=== PATIENT | female | born 1955 | race American Indian/Alaskan Native ===

== ENCOUNTER 2017-07-09 22:07 | Emergency (ER) | payer MEDICARE ==
--- NOTE | 2017-07-10 11:11 | Emergency Department Report ---
[facility] - Documentation Documentation: Ms. Alvarez is 61 years old female with history of hypertension and diabetes and asthma. Patient presented with a one-week history of shortness of breath. Patient stated that she thought this might be her asthma she was taking her albuterol but there is no help. The patient described has shortness of breath is when she started walking. No shortness of breath while she is resting. Patient denied any chest pain. She also noted a swelling in her right calf. Patient denied any history of fever, nausea or vomiting. On exam patient is in no acute distress, lungs clear on both sides with no wheezing or rales. Given the current presentation possibility of DVT with PE, new onset CHF is a possibility. Patient will need to be moved to the main ED for further management. EKG, labs and Doppler venous ultrasound ordered.
[2017-07-10 11:49] LABS: Hematocrit 45.8 % (30.3-42.9); Hemoglobin 15.5 gm/dl (10.1-14.3); Mean Corpuscular HGB Conc 34 % (30-34); Mean Corpuscular Hemoglobin 31 pg (28-32); Mean Corpuscular Volume 93 fl (79-97); Platelet Count 201 K/mm3 (140-440); Red Blood Count 4.95 M/mm3 (3.65-5.03); Red Cell Distribution Width 13.6 % (13.2-15.2)
--- NOTE | 2017-07-10 12:18 | XRay Report ---
ROUTINE CHEST, TWO VIEWS: HISTORY: Short of breath, asthma. The trachea, heart, mediastinal contour, and lung nichole are unremarkable. Chronic superior endplate fracture at T11 is unchanged since 03/21/16. No acute bony abnormality appreciated. IMPRESSION: Unremarkable chest x-ray. Chronic T11 superior endplate fracture.
[2017-07-10 12:25] LABS: Alanine Aminotransferase 16 units/L (7-56); Albumin 4.3 g/dL (3.9-5); BUN/Creatinine Ratio 27; Blood Urea Nitrogen 16 mg/dL (7-17); Calcium 9.7 mg/dL (8.4-10.2); Hemolysis Index 10
[2017-07-10 12:39] LABS: Band Neutrophils # (Manual) 0.1 K/mm3; RBC Morphology Normal; Total Cells Counted 100
[2017-07-10 12:57] LABS: Bacteria,Urine 2+ /HPF (Negative); Bilirubin,Urine NEG (Negative); Blood,Urine SM (Negative); Color,Urine Yellow (Yellow); Mucus,Urine FEW /HPF; Nitrite,Urine NEG (Negative); Protein,Urine <15 mg/dL mg/dL (Negative)
--- NOTE | 2017-07-10 13:40 | Emergency Department Report ---
HPI - General Chief Complaint: Dyspnea/Respdistress Time Seen by Provider: 07/10/17 11:00 - HPI HPI: 61-year-old -[place] female comes in with complaint of shortness of breath for about 2 weeks. Patient post she has a history of asthma she been treating herself at home with albuterol nebs and prednisone with no relief. Patient also complains of back and leg pain which is chronic. Patient reports nausea no vomiting no fever no chills she does admit to sweats for no reason. She reports taken the prednisone between 15-20 mg at least 4 times last week. Patient appears to have a past medical history of diabetes in hypertension as well as asthma. ED Past Medical Hx - Past Medical History Hx Hypertension: Yes Hx Congestive Heart Failure: No Hx Diabetes: Yes Hx Deep Vein Thrombosis: Yes Hx Pulmonary Embolism: Yes Hx GERD: Yes Hx Asthma: Yes Hx COPD: No Hx Dementia: Yes Additional medical history: Hyperthyroidism - Surgical History Additional Surgical History: , biopsy of right breast. - Social History Smoking Status: Never Smoker Substance Use Type: None - Medications Home Medications: Home Medications Medication Instructions Recorded Confirmed Last Taken Type ALBUTEROL Inhaler [ProAir HFA 2 puff IH QID PRN #90 inhalation 03/22/16 Unknown Rx Inhaler] ALPRAZolam [Xanax TAB] 0.25 mg PO Q8H PRN #30 tablet 03/22/16 Unknown Rx Diltiazem Cd [Cardizem Cd] 120 mg PO DAILY #30 cap 03/22/16 Unknown Rx Fluticasone (Nf) [Flovent Hfa(Nf)] 2 puff IH BID #60 puff 03/22/16 Unknown Rx HYDROcodone/APAP 5-325 [Maybee 1 each PO Q8H PRN #30 tablet 03/22/16 Unknown Rx 5-325 mg TAB] Levalbuterol Tartrate [Xopenex Hfa] 1 puff IH Q8HR #2 hfa.aer.ad 03/22/16 Unknown Rx Lisinopril [Zestril TAB] 40 mg PO QDAY #30 tablet 03/22/16 Unknown Rx Methimazole [Tapazole] 10 mg PO Q8HR #90 tablet 03/22/16 Unknown Rx Metoprolol Xl [Metoprolol 50 mg PO QDAY #30 tablet 03/22/16 Unknown Rx SUCCINATE ER TAB] Prednisone [predniSONE (Jairo) ER 10 mg PO QDAY #60 tablet. 03/22/16 Unknown Rx TAB] metFORMIN XR [Glucophage XR] 1,000 mg PO QDDIAB #60 tablet 03/22/16 Unknown Rx ALBUTEROL NEB's [Proventil 0.083% 2.5 mg IH TID PRN #270 ml 07/10/17 Unknown Rx NEBS] Ibuprofen 600 mg PO TID #15 tablet 07/10/17 Unknown Rx Levofloxacin [Levaquin TAB] 500 mg PO QDAY #7 tablet 07/10/17 Unknown Rx ED Review of Systems ROS: Stated complaint: SOB/HX ASTHMA Other details as noted in HPI Constitutional: denies: chills, fever Eyes: denies: eye pain, eye discharge, vision change ENT: denies: ear pain, throat pain Respiratory: shortness of breath, SOB with exertion. denies: SOB at rest Cardiovascular: palpitations. denies: chest pain Endocrine: no symptoms reported Gastrointestinal: denies: abdominal pain, nausea, diarrhea Genitourinary: denies: urgency, dysuria, discharge Musculoskeletal: back pain (chronic), arthralgia (reports a history rheumatoid arthritis). denies: joint swelling Skin: denies: rash, lesions Neurological: denies: headache, weakness, paresthesias Psychiatric: denies: anxiety, depression Hematological/Lymphatic: denies: easy bleeding, easy bruising Physical Exam - Physical Exam Vital Signs: Vital Signs 07/10/17 07/10/17 00:21 08:51 Temperature 98.3 F 98.1 F Pulse Rate 106 H 100 H Respiratory 16 16 Rate Blood Pressure 191/97 Blood Pressure 194/96 [Left] O2 Sat by Pulse 98 100 Oximetry Physical Exam: GENERAL: Alert and oriented x3, no apparent distress, Abnormal Gait, atraumatic. HEAD: Head is normocephalic and a-traumatic. EYES: Extra ocular muscles are intact. Pupils are equal, round, and reactive to light and accommodation. NOSE: Nose symetrical, Nontender,Nares appeared normal. MOUTH:Mouth is well hydrated and without lesions. Tonsils nonerythematous or swollen, Uvula midline, Tongue not elevated. Mucous membranes are moist. Posterior pharynx clear, no exudate or lesions. Patent airways. NECK: Supple. Non edematous, No carotid bruits. No lymphadenopathy or thyromegaly. LUNGS: Symetrical with respiration, No wheezing, no rales or crackles, CTAB. HEART: S1, S2 present, tachycardia rate and rhythm without murmur, no rubs, no gallops. ABDOMEN: No organomegaly was noted,Positive bowel sounds, soft, and non- distended. . Nontender to palpation on all Quadrants, EXTREMITIES/MUSCULOSKELETAL: No cyanosis, clubbing, rash, lesions or edema. Full ROM bilaterally. UE/LE Pulses 2+ bilaterally. LE and UE 5+ strength bilaterally NEUROLOGIC: No focal Deficit, Cranial nerves II through XII are grossly intact. No loss of sensation, No facial droop, PSYCHIATRIC: Mood is congruent with affect, denies suicidal or homicidal ideations. SKIN: Warm and dry, No lesions, No ulceration or induration present ED Course Vital Signs 07/10/17 07/10/17 00:21 08:51 Temperature 98.3 F 98.1 F Pulse Rate 106 H 100 H Respiratory 16 16 Rate Blood Pressure 191/97 Blood Pressure 194/96 [Left] O2 Sat by Pulse 98 100 Oximetry ED Medical Decision Making - Lab Data Result diagrams: 07/10/17 11:40 07/10/17 11:40 Critical care attestation.: If time is entered above; I have spent that time in minutes in the direct care of this critically ill patient, excluding procedure time. ED Disposition Clinical Impression: Upper respiratory infection Qualifiers: URI type: unspecified URI Qualified Code(s): J06.9 - Acute upper respiratory infection, unspecified Disposition: DC- TO HOME OR SELFCARE Is pt being admited?: No Does the pt Need Aspirin: No Condition: Stable Instructions: Upper Respiratory Infection (ED) Additional Instructions: Complete antibiotics as prescribed. He can continue with the nebulizer treatments as needed. He did take ibuprofen for body aches and leg pain. Please follow up with her primary care provider within 3-5 days for further evaluation. Prescriptions: ALBUTEROL NEB's [Proventil 0.083% NEBS] 2.5 mg IH TID PRN #270 ml PRN Reason: Wheezing Ibuprofen 600 mg PO TID #15 tablet Levofloxacin [Levaquin TAB] 500 mg PO QDAY #7 tablet Referrals: PRIMARY CARE, [Primary Care Provider] - 3-5 Days Forms: Work/School Release Form(ED)
[2017-07-10 14:39] VITALS: BP 152/73
[2017-07-10 15:38] LABS: Free T4 (Free Thyroxine) 0.96 ng/dL (0.76-1.46)
--- NOTE | 2017-07-12 09:53 | Vascular Lab Report ---
Right Lower Extremity Venous Duplex Study: Reason for Exam: Pain and swelling of the right lower extremity. Comments on the Right: All veins visualized are freely compressible without evidence of internal echogenicity. Flow is spontaneous and phasic throughout. No evidence of acute or chronic thrombus is seen in any of the vessels visualized. A soft tissue change in the right knee area is consistent with a Rizvi's cyst. Comments on the Left: A limited duplex study was done of the proximal veins of the left lower extremity. All veins visualized are freely compressible without evidence of internal echogenicity. Flow is spontaneous and phasic throughout. No evidence of acute or chronic thrombus is seen in any of the vessels visualized. Impression: No evidence of acute or chronic deep venous thrombosis in the right lower extremity. A soft tissue change in the right knee area is consistent with a Rizvi's cyst.
== END 2017-07-10 15:40 | disposition home or self-care (01) ==
LOC: ED 22:07
DX: J06.9 Acute upper respiratory infection, unspecified (principal); I10 Essential (primary) hypertension; E11.9 Type 2 diabetes mellitus without complications; K21.9 Gastro-esophageal reflux disease without esophagitis; J45.909 Unspecified asthma, uncomplicated; E05.90 Thyrotoxicosis, unspecified without thyrotoxic crisis or storm; I82.409 Acute embolism and thrombosis of unspecified deep veins of unspecified lower extremity; Z91.013 Allergy to seafood; Z88.8 Allergy status to other drugs, medicaments and biological substances
CPT/HCPCS: 36415; 71046; 80053; 81001; 83880; 84439; 84443; 84484; 85007; 85025; 85379; 93005; 93010

== ENCOUNTER 2020-12-20 12:55 | Inpatient (IN) | payer MEDICARE ==
[2020-12-20] MEDS ORDERED: IPRATROPIUM 0.02% NEBU 2.5 ML IH ONE (13:57)
[2020-12-20] MEDS ORDERED: dexAMETHasone 20 MG/5 ML VIAL IV ONE (13:57)
[2020-12-20] MEDS ORDERED: ALBUTEROL 2.5 MG/3 ML NEBU IH ONE (13:57)
[2020-12-20 14:44] LABS: Basophils % (Auto) 0.4 % (0.0-1.8); Eosinophils % (Auto) 0.4 % (0.0-4.3); Hematocrit 44.1 % (30.3-42.9); Hemoglobin 14.9 gm/dl (10.1-14.3); Lymphocytes # (Auto) 1.6 K/mm3 (1.2-5.4); Lymphocytes % (Auto) 14.9 % (13.4-35.0); Mean Corpuscular HGB Conc 34 % (30-34); Mean Corpuscular Volume 93 fl (79-97); Monocytes # (Auto) 0.5 K/mm3 (0.0-0.8); Monocytes % (Auto) 4.5 % (0.0-7.3); Platelet Count 189 K/mm3 (140-440); Red Blood Count 4.73 M/mm3 (3.65-5.03); Red Cell Distribution Width 13.9 % (13.2-15.2)
[2020-12-20 14:57] LABS: Blood Urea Nitrogen 10 mg/dL (7-17); Calcium 9.3 mg/dL (8.4-10.2); Hemolysis Index 5
[2020-12-20 15:01] LABS: BUN/Creatinine Ratio 17
--- NOTE | 2020-12-20 15:09 | XRay Report ---
CHEST 1 VIEW 1439 INDICATION / CLINICAL INFORMATION: dyspnea COMPARISON: 07/10/2017 FINDINGS: SUPPORT DEVICES: None HEART / MEDIASTINUM: No significant abnormality. LUNGS / PLEURA: No significant pulmonary or pleural abnormality. No pneumothorax. ADDITIONAL FINDINGS: No significant additional findings. IMPRESSION: No significant acute abnormality Signer Name: Peter Thomas MD Signed: 12/20/2020 3:05 PM Workstation Name: [id number]
--- NOTE | 2020-12-20 17:08 | Nuclear Medicine Report ---
Perfusion scintigraphy INDICATION: Dyspnea COMPARISON: Portable chest x-ray today Radiopharmaceutical: 5.1 mCi technetium MAA IV FINDINGS: A large defect is seen on the perfusion study in the anterior aspect of the right upper lob e. Left lung shows scattered small defects. No corresponding radiographic abnormality is seen. IMPRESSION: I cannot exclude pulmonary thromboembolism and the study is considered indeterminate/inte rmediate in probability without a ventilation study for correlation. If patient can receive contrast I would suggest CTA chest. Signer Name: Peter Thomas MD Signed: 12/20/2020 5:03 PM Workstation Name: [id number]
[2020-12-20] MEDS ORDERED: diphenhydrAMINE 50 MG/ML VIAL IV ONE (17:28)
--- NOTE | 2020-12-20 19:02 | Cat Scan Report ---
CTA CHEST WITH CONTRAST INDICATION / CLINICAL INFORMATION: dyspnea, indeterminate perf study OMNIPAQUE 350 100ML. TECHNIQUE: Axial CT images were obtained through the chest after injection of IV contrast. 3 plane SD P and/or 3D reconstructions were produced. All CT scans at this location are performed using CT dose reduction for ALARA by means of automated exposure control. COMPARISON: None available. FINDINGS: There is filling defect and thrombus within the right central pulmonary artery with additional thromb us within the segmental pulmonary arteries extending into the right lower lung. Extensive thrombus wi thin the right upper lung pulmonary arteries as well. Hiatal hernia is noted. No focal consolidation is seen. Chronic changes are noted with minimal lower lobe atelectasis. No acute bone findings are se en. IMPRESSION: 1. PTE within the right central pulmonary artery with extension to the right upper and lower pulmonar y arteries. CRITICAL RESULT: Time of Discovery (OUTDOOR STUDIES PROFESSOR/CDT): 554 Time of Communication (OUTDOOR STUDIES PROFESSOR/CDT): 554 Licensed Practitioner Receiving Report: Sertoff Read-Back Performed: Yes. Signer Name: Bakari Villagomez MD Signed: 12/20/2020 6:57 PM Workstation Name: [id number]
--- NOTE | 2020-12-20 19:09 | History and Physical Report ---
History of Present Illness Chief complaint: I dont feel well and I cannot breathe History of present illness: 65 YO Female with HTN, DM, Asthma, GERD, OA, Debility, Obesity Hypoventilation Syndrome, Hyperthyroidism, DVT/PE not currently on therapeutic anticoagulation, Vascular Dementia, Cerebral Atherosclerosis presents to ED for evaluation. Patient reports "I do not feel well, and I just cannot breathe". Patient states that she has experienced shortness of breath, generalized weakness, malaise, decreased exercise tolerance, dyspnea on exertion, dry cough, dyspnea at rest over the past 1 week with persistently worsening symptoms over the same timeframe. Patient also reports frequent nebulizer therapy without relief. EMS was notified and upon arrival the patient was found to be in distress and subsequently transported to [facility] for further care and evaluation of the aforementioned symptoms. The patient was seen and evaluated in the emergency department. All lab and imaging studies reviewed. Patient is uncertain of COVID-19 exposure and is unvaccinated. Patient found to have a pulse oximetry of 88% on room air which is consistent with acute hypoxemic respiratory failure. Patient underwent CT scan of the chest which revealed large right pulmonary embolism. Patient admitted to [facility] and initiated on therapeutic anticoagulation as well as coronavirus protocol. Patient denies fever, chills, chest pain, palpitations, skin rash, recent ill contacts. Prior admission on 03/18/2016 reviewed. All medication listed at time of admission has been reconciled. Advanced care planning conducted in ED. Vascular surgery team consulted in ED. Past History Past Medical History: arthritis, diabetes, DVT, GERD, hypertension, pulmonary embolism Past Surgical History: , Other (Breast biopsy) Social history: . denies: smoking, alcohol abuse Family history: diabetes, hypertension Medications and Allergies Allergies Allergy/AdvReac Type Severity Reaction Status Date / Time iodine Allergy Shortness Verified 04/01/18 15:58 of Breath shellfish derived Allergy Swelling Verified 04/01/18 15:58 Home Medications Medication Instructions Recorded Confirmed Last Taken Type ALPRAZolam [Xanax TAB] 0.25 mg PO Q8H PRN #30 tablet 03/22/16 Unknown Rx Albuterol Mdi (or & Nicu Only) 2 puff IH QID PRN #90 inhalation 03/22/16 Unknown Rx [ProAir HFA Inhaler] Fluticasone (Nf) [Flovent Hfa(Nf)] 2 puff IH BID #60 puff 03/22/16 Unknown Rx Levalbuterol Tartrate [Xopenex Hfa] 1 puff IH Q8HR #2 hfa.aer.ad 03/22/16 Unknown Rx Metoprolol Xl [Metoprolol 50 mg PO QDAY #30 tablet 03/22/16 Unknown Rx SUCCINATE ER TAB] Prednisone [predniSONE (Jairo) ER 10 mg PO QDAY #60 tablet.dr 03/22/16 Unknown Rx TAB] dilTIAZem CD [Cardizem Cd] 120 mg PO DAILY #30 cap 03/22/16 Unknown Rx lisinopriL [Zestril TAB] 40 mg PO QDAY #30 tablet 03/22/16 Unknown Rx metFORMIN XR [Glucophage XR] 1,000 mg PO QDDIAB #60 tablet 03/22/16 Unknown Rx methIMAzole [Tapazole] 10 mg PO Q8HR #90 tablet 03/22/16 Unknown Rx ALBUTEROL NEB's [Proventil 0.083% 2.5 mg IH TID PRN #270 ml 07/10/17 Unknown Rx NEBS] Cyclobenzaprine HCl [Flexeril 5 MG 5 mg PO Q12H PRN #10 tab 04/01/18 Unknown Rx TAB] traMADoL [Ultram] 50 mg PO Q6HR PRN #10 tablet 04/01/18 Unknown Rx Review of Systems Constitutional: fatigue, weakness, malaise, no weight loss, no weight gain, no fever, no sweats Ears, nose, mouth and throat: no ear pain, no tinnitis, no decreased hearing, no nose pain, no nasal congestion, no nasal discharge Cardiovascular: shortness of breath, dyspnea on exertion, decreased exercise tolerance Respiratory: cough, dyspnea on exertion Gastrointestinal: no nausea, no vomiting, no diarrhea Genitourinary Female: no pelvic pain, no flank pain, no dysuria, no urinary frequency, no urgency Rectal: no pain, no incontinence, no bleeding Musculoskeletal: no neck stiffness, no neck pain, no shooting leg pain Integumentary: no rash, no redness, no sores, no jaundice, no boils Neurological: no transient paralysis, no paralysis, no numbness, no tingling, no seizures, no tremors Psychiatric: no anxiety, no change in sleep habits, no insomnia, no hypersomnia, no change in libido, no suicidal ideation, no disorientation Endocrine: no cold intolerance, no polyphagia, no polydipsia, no polyuria, no nocturia Hematologic/Lymphatic: no easy bruising, no easy bleeding, no lymphedema Allergic/Immunologic: no allergic rhinitis, no wheezing, no anaphylaxis Exam - Constitutional Vitals: Temp Pulse Resp BP Pulse Ox 99.1 F 118 H 16 166/100 98 12/20/20 13:45 12/20/20 18:18 12/20/20 18:18 12/20/20 18:18 12/20/20 18:18 General appearance: Present: mild distress, obese - EENT Eyes: Present: PERRL ENT: hearing intact, clear oral mucosa - Neck Neck: Present: supple, normal ROM - Respiratory Respiratory effort: labored, accessory muscle use, stridor Respiratory: bilateral: diminished, rhonchi - Cardiovascular Heart Sounds: Present: S1 & S2. Absent: rub, click - Extremities Extremities: pulses symmetrical, No edema Peripheral Pulses: within normal limits - Abdominal General gastrointestinal: Present: soft, non-tender, non-distended, normal bowel sounds Female genitourinary: Present: normal - Integumentary Integumentary: Present: clear, warm, dry - Musculoskeletal Musculoskeletal: gait normal, strength equal bilaterally - Psychiatric Psychiatric: appropriate mood/affect, intact judgment & insight - Neurologic Neurologic: CNII-XII intact, moves all extremities Results - Labs CBC & Chem 7: 12/20/20 19:17 12/20/20 19:13 Labs: Abnormal lab results 12/20/20 12/20/20 12/20/20 Range/Units 14:28 14:28 14:28 Hgb 14.9 H (10.1-14.3) gm/dl Hct 44.1 H (30.3-42.9) % Seg Neutrophils % 79.8 H (40.0-70.0) % Seg Neutrophils # 8.4 H (1.8-7.7) K/mm3 D-Dimer 663.99 H (0-234) ng/mlDDU Glucose 153 H (65-100) mg/dL Assessment and Plan - Patient Problems (1) Acute hypoxemic respiratory failure Current Visit: Yes Status: Acute Plan to address problem: Supplemental oxygen, pulse oximetry, chest x-ray, CT scan chest, noninvasive positive pressure ventilation as clinically indicated (2) Suspected 2019-nCoV infection Current Visit: Yes Status: Acute Plan to address problem: Coronavirus protocol: Steroid therapy, supportive care, vitamin C therapy, vitamin D therapy, zinc therapy, coronavirus PCR ordered and is pending at time of admission, contact cautions, isolation precautions (3) Obesity hypoventilation syndrome Current Visit: Yes Status: Acute Plan to address problem: Balanced diet, increase physical activity at discharge, outpatient pulmonary follow-up for sleep study. (4) Pulmonary embolism Current Visit: Yes Status: Acute Qualifiers: Pulmonary embolism type: other Chronicity: acute Acute cor pulmonale presence: without acute cor pulmonale Qualified Code(s): I26.99 - Other pulmonary embolism without acute cor pulmonale Plan to address problem: CT scan chest, therapeutic anticoagulation with heparin drip, supportive care. Interventional radiology team consulted. Echocardiogram ordered, no EKG right strain pattern. (5) Diastolic CHF Current Visit: Yes Status: Suspected Qualifiers: Heart failure chronicity: acute Qualified Code(s): I50.31 - Acute diastolic (congestive) heart failure Plan to address problem: Strict I/O, monitor urine output every shift, daily weight, afterload reduction, blood pressure control, echocardiogram ordered and is pending at time of admission (6) Hypertension Current Visit: Yes Status: Acute (7) Diabetes Current Visit: Yes Status: Acute Plan to address problem: Consistent carbohydrate diet, Accu-Chek, hypoglycemia protocol, insulin pr otocol. (8) GERD (gastroesophageal reflux disease) Current Visit: Yes Status: Acute Qualifiers: Esophagitis presence: without esophagitis Qualified Code(s): K21.9 - Gastro-esophageal reflux disease without esophagitis Plan to address problem: PPI therapy, supportive care (9) Hyperthyroidism Current Visit: Yes Status: Acute Plan to address problem: Continue methimazole therapy, supportive care, telemetry monitoring. (10) DVT prophylaxis Current Visit: Yes Status: Acute Plan to address problem: SCD to bilateral lower extremities while in bed, continue therapeutic anticoagulation (11) Advance care planning Current Visit: Yes Status: Acute Plan to address problem: Disease education conducted, care plan discussed, diagnosis discussed, prognosis discussed, patient is full code, patient knowledges understanding and agreement with care plan, +30 minutes.
[2020-12-20] MEDS ORDERED: HEPARIN 10,000 UNITS/10 ML VIAL IV PRN (19:10)
[2020-12-20] MEDS ORDERED: HEPARIN 10,000 UNITS/10 ML VIAL IV ONE (19:10)
--- NOTE | 2020-12-20 19:21 | Emergency Department Report ---
ED Shortness of Breath HPI - General Chief Complaint: Dyspnea/Respdistress Stated Complaint: SHORTNESS OF BREATH Time Seen by Provider: 12/20/20 13:53 Source: EMS Mode of arrival: Stretcher Limitations: No Limitations - History of Present Illness Initial Comments: Patient is a 65-year-old F [place]ian female with past medical history hypertension and asthma who has had a cough with shortness of breath of throughout the week. Patient does have a nebulizer machine at home but states that the neb treatments are not helping. She is taken multiple neb treatments even today without relief. Patient states the cough is dry she does have some pain with the cough. She denies fevers chills body aches nausea vomiting or diarrhea at this time. - Related Data Previous Rx's Medication Instructions Recorded Last Taken Type ALPRAZolam [Xanax TAB] 0.25 mg PO Q8H PRN #30 tablet 03/22/16 Unknown Rx Albuterol Mdi (or & Nicu Only) 2 puff IH QID PRN #90 inhalation 03/22/16 Unknown Rx [ProAir HFA Inhaler] Fluticasone (Nf) [Flovent Hfa(Nf)] 2 puff IH BID #60 puff 03/22/16 Unknown Rx Levalbuterol Tartrate [Xopenex Hfa] 1 puff IH Q8HR #2 hfa.aer.ad 03/22/16 Unknown Rx Metoprolol Xl [Metoprolol 50 mg PO QDAY #30 tablet 03/22/16 Unknown Rx SUCCINATE ER TAB] Prednisone [predniSONE (Jairo) ER 10 mg PO QDAY #60 tablet.dr 03/22/16 Unknown Rx TAB] dilTIAZem CD [Cardizem Cd] 120 mg PO DAILY #30 cap 03/22/16 Unknown Rx lisinopriL [Zestril TAB] 40 mg PO QDAY #30 tablet 03/22/16 Unknown Rx metFORMIN XR [Glucophage XR] 1,000 mg PO QDDIAB #60 tablet 03/22/16 Unknown Rx methIMAzole [Tapazole] 10 mg PO Q8HR #90 tablet 03/22/16 Unknown Rx ALBUTEROL NEB's [Proventil 0.083% 2.5 mg IH TID PRN #270 ml 07/10/17 Unknown Rx NEBS] Cyclobenzaprine HCl [Flexeril 5 MG 5 mg PO Q12H PRN #10 tab 04/01/18 Unknown Rx TAB] traMADoL [Ultram] 50 mg PO Q6HR PRN #10 tablet 04/01/18 Unknown Rx Allergies Allergy/AdvReac Type Severity Reaction Status Date / Time iodine Allergy Shortness Verified 04/01/18 15:58 of Breath shellfish derived Allergy Swelling Verified 04/01/18 15:58 ED Review of Systems ROS: Stated complaint: SHORTNESS OF BREATH Other details as noted in HPI Comment: All other systems reviewed and negative ED Past Medical Hx - Past Medical History Previous Medical History?: Yes Hx Hypertension: Yes Hx Congestive Heart Failure: No Hx Diabetes: Yes Hx Deep Vein Thrombosis: Yes Hx Pulmonary Embolism: Yes Hx GERD: Yes Hx Asthma: Yes Hx COPD: No Hx Dementia: Yes Additional medical history: Hyperthyroidism - Surgical History Past Surgical History?: Yes Additional Surgical History: , biopsy of right breast. - Social History Smoking Status: Never Smoker - Medications Home Medications: Home Medications Medication Instructions Recorded Confirmed Last Taken Type ALPRAZolam [Xanax TAB] 0.25 mg PO Q8H PRN #30 tablet 03/22/16 Unknown Rx Albuterol Mdi (or & Nicu Only) 2 puff IH QID PRN #90 inhalation 03/22/16 Unknown Rx [ProAir HFA Inhaler] Fluticasone (Nf) [Flovent Hfa(Nf)] 2 puff IH BID #60 puff 03/22/16 Unknown Rx Levalbuterol Tartrate [Xopenex Hfa] 1 puff IH Q8HR #2 hfa.aer.ad 03/22/16 Unknown Rx Metoprolol Xl [Metoprolol 50 mg PO QDAY #30 tablet 03/22/16 Unknown Rx SUCCINATE ER TAB] Prednisone [predniSONE (Jairo) ER 10 mg PO QDAY #60 tablet.dr 03/22/16 Unknown Rx TAB] dilTIAZem CD [Cardizem Cd] 120 mg PO DAILY #30 cap 03/22/16 Unknown Rx lisinopriL [Zestril TAB] 40 mg PO QDAY #30 tablet 03/22/16 Unknown Rx metFORMIN XR [Glucophage XR] 1,000 mg PO QDDIAB #60 tablet 03/22/16 Unknown Rx methIMAzole [Tapazole] 10 mg PO Q8HR #90 tablet 03/22/16 Unknown Rx ALBUTEROL NEB's [Proventil 0.083% 2.5 mg IH TID PRN #270 ml 07/10/17 Unknown Rx NEBS] Cyclobenzaprine HCl [Flexeril 5 MG 5 mg PO Q12H PRN #10 tab 04/01/18 Unknown Rx TAB] traMADoL [Ultram] 50 mg PO Q6HR PRN #10 tablet 04/01/18 Unknown Rx ED Physical Exam - General Limitations: No Limitations General appearance: alert, in no apparent distress - Head Head exam: Present: atraumatic, normocephalic - Eye Eye exam: Present: normal appearance - ENT ENT exam: Present: mucous membranes moist - Neck Neck exam: Present: normal inspection - Respiratory Respiratory exam: Present: respiratory distress (Tachypneic), wheezes (Mild). Absent: normal lung sounds bilaterally, rales, rhonchi - Cardiovascular Cardiovascular Exam: Present: normal rhythm, tachycardia, normal heart sounds. Absent: systolic murmur, diastolic murmur, rubs, gallop - GI/Abdominal GI/Abdominal exam: Present: soft, normal bowel sounds. Absent: distended, tenderness, guarding, rebound - Extremities Exam Extremities exam: Present: normal inspection - Back Exam Back exam: Present: normal inspection - Neurological Exam Neurological exam: Present: alert, oriented X3 - Psychiatric Psychiatric exam: Present: normal affect, normal mood - Skin Skin exam: Present: warm, dry, intact, normal color. Absent: rash ED Course Vital Signs 12/20/20 12/20/20 12/20/20 13:45 13:53 13:56 Temperature 99.1 F Pulse Rate 104 H 103 H 113 H Pulse Rate [ Bilateral] Respiratory 13 13 20 Rate Respiratory Rate [Bilateral ] Blood Pressure 165/97 142/80 Blood Pressure 165/97 [Left] O2 Sat by Pulse 97 97 99 Oximetry 12/20/20 12/20/20 12/20/20 14:00 14:05 14:06 Temperature Pulse Rate 104 H 102 H Pulse Rate [ 90 Bilateral] Respiratory 13 15 Rate Respiratory 18 Rate [Bilateral ] Blood Pressure 142/80 142/80 Blood Pressure [Left] O2 Sat by Pulse 98 98 Oximetry 12/20/20 12/20/20 12/20/20 14:10 14:16 14:20 Temperature Pulse Rate 104 H 105 H 105 H Pulse Rate [ Bilateral] Respiratory 18 16 14 Rate Respiratory Rate [Bilateral ] Blood Pressure 142/80 142/80 142/80 Blood Pressure [Left] O2 Sat by Pulse 95 100 99 Oximetry 12/20/20 12/20/20 12/20/20 14:25 14:30 14:36 Temperature Pulse Rate 105 H 108 H 114 H Pulse Rate [ Bilateral] Respiratory 14 13 18 Rate Respiratory Rate [Bilateral ] Blood Pressure 136/82 142/80 142/80 Blood Pressure [Left] O2 Sat by Pulse 97 98 100 Oximetry 12/20/20 12/20/20 12/20/20 14:40 14:46 14:50 Temperature Pulse Rate 110 H 111 H Pulse Rate [ Bilateral] Respiratory 14 14 25 H Rate Respiratory Rate [Bilateral ] Blood Pressure 142/80 136/82 142/80 Blood Pressure [Left] O2 Sat by Pulse 100 100 83 L Oximetry 12/20/20 12/20/20 12/20/20 14:56 15:00 15:06 Temperature Pulse Rate 109 H 106 H 114 H Pulse Rate [ Bilateral] Respiratory 17 18 16 Rate Respiratory Rate [Bilateral ] Blood Pressure 142/80 142/80 142/80 Blood Pressure [Left] O2 Sat by Pulse 100 96 96 Oximetry 12/20/20 12/20/20 12/20/20 15:10 15:16 15:20 Temperature Pulse Rate 111 H 111 H 109 H Pulse Rate [ Bilateral] Respiratory 15 17 15 Rate Respiratory Rate [Bilateral ] Blood Pressure 142/80 142/80 142/80 Blood Pressure [Left] O2 Sat by Pulse 95 96 95 Oximetry 12/20/20 12/20/20 12/20/20 15:26 15:30 15:36 Temperature Pulse Rate 108 H 106 H 107 H Pulse Rate [ Bilateral] Respiratory 13 17 14 Rate Respiratory Rate [Bilateral ] Blood Pressure 142/80 136/82 136/82 Blood Pressure [Left] O2 Sat by Pulse 97 94 93 Oximetry 12/20/20 12/20/20 12/20/20 15:40 15:46 15:50 Temperature Pulse Rate 107 H 110 H 107 H Pulse Rate [ Bilateral] Respiratory 14 13 18 Rate Respiratory Rate [Bilateral ] Blood Pressure 136/82 136/82 136/82 Blood Pressure [Left] O2 Sat by Pulse 94 97 95 Oximetry 12/20/20 12/20/20 12/20/20 16:00 16:10 16:15 Temperature Pulse Rate 106 H 107 H 107 H Pulse Rate [ Bilateral] Respiratory 17 24 24 Rate Respiratory Rate [Bilateral ] Blood Pressure 136/82 136/82 Blood Pressure 136/82 [Left] O2 Sat by Pulse 97 100 100 Oximetry 12/20/20 12/20/20 12/20/20 16:46 17:00 17:30 Temperature Pulse Rate Pulse Rate [ Bilateral] Respiratory Rate Respiratory Rate [Bilateral ] Blood Pressure 136/82 136/82 136/82 Blood Pressure [Left] O2 Sat by Pulse 92 99 99 Oximetry 12/20/20 12/20/20 18:00 18:18 Temperature Pulse Rate 118 H 118 H Pulse Rate [ Bilateral] Respiratory 16 16 Rate Respiratory Rate [Bilateral ] Blood Pressure 166/100 Blood Pressure 166/100 [Left] O2 Sat by Pulse 98 98 Oximetry ED Medical Decision Making - Lab Data Result diagrams: 12/20/20 14:28 12/20/20 14:28 Lab Results 12/20/20 12/20/20 12/20/20 Range/Units 14:28 14:28 14:28 WBC 10.5 (4.5-11.0) K/mm3 RBC 4.73 (3.65-5.03) M/mm3 Hgb 14.9 H (10.1-14.3) gm/dl Hct 44.1 H (30.3-42.9) % MCV 93 (79-97) fl MCH 31 (28-32) pg MCHC 34 (30-34) % RDW 13.9 (13.2-15.2) % Plt Count 189 (140-440) K/mm3 Lymph % (Auto) 14.9 (13.4-35.0) % [place] % (Auto) 4.5 (0.0-7.3) % Eos % (Auto) 0.4 (0.0-4.3) % Baso % (Auto) 0.4 (0.0-1.8) % Lymph # (Auto) 1.6 (1.2-5.4) K/mm3 [place]ades # (Auto) 0.5 (0.0-0.8) K/mm3 Eos # (Auto) 0.0 (0.0-0.4) K/mm3 Baso # (Auto) 0.0 (0.0-0.1) K/mm3 Seg Neutrophils % 79.8 H (40.0-70.0) % Seg Neutrophils # 8.4 H (1.8-7.7) K/mm3 D-Dimer 663.99 H (0-234) ng/mlDDU Sodium 138 (137-145) mmol/L Potassium 3.9 (3.6-5.0) mmol/L Chloride 100.6 (98-107) mmol/L Carbon Dioxide 25 (22-30) mmol/L Anion Gap 16 mmol/L BUN 10 (7-17) mg/dL Creatinine 0.6 (0.6-1.2) mg/dL Estimated GFR > 60 ml/min BUN/Creatinine Ratio 17 % Glucose 153 H (65-100) mg/dL Calcium 9.3 (8.4-10.2) mg/dL - Radiology Data Ordering Physician: RAHEEL AVILA MD Date of Service: 12/20/20 Procedure(s): XR chest 1V ap Accession Number(s): [id number] cc: RAHEEL AVILA MD Fluoro Time In Minutes: CHEST 1 VIEW 1439 INDICATION / CLINICAL INFORMATION: dyspnea COMPARISON: 07/10/2017 FINDINGS: SUPPORT DEVICES: None HEART / MEDIASTINUM: No significant abnormality. LUNGS / PLEURA: No significant pulmonary or pleural abnormality. No pneumothorax. ADDITIONAL FINDINGS: No significant additional findings. IMPRESSION: No significant acute abnormality Signer Name: Peter Thomas MD Signed: 12/20/2020 3:05 PM Perfusion study shows deficit on the right however without the ventilation portion is unable to determine with the patient has a PE or other infiltrate [facility] [address] [place] [address] Cat Scan Report Signed Patient: GRETA GLEZ MR#: [id number] : 1955 Acct:[id number] Age/Sex: 65 / F ADM Date: 12/20/20 Loc: ED Attending Dr: Ordering Physician: RAHEEL AVILA MD Date of Service: 12/20/20 Procedure(s): CT angio chest Accession Number(s): [id number] cc: RAHEEL AVILA MD CTA CHEST WITH CONTRAST INDICATION / CLINICAL INFORMATION: dyspnea, indeterminate perf study OMNIPAQUE 350 100ML. TECHNIQUE: Axial CT images were obtained through the chest after injection of IV contrast. 3 plane MIP and/or 3D reconstructions were produced. All CT scans at this location are performed using CT dose reduction for ALARA by means of automated exposure control. COMPARISON: None available. FINDINGS: There is filling defect and thrombus within the right central pulmonary artery with additional thrombus within the segmental pulmonary arteries extending into the right lower lung. Extensive thrombus within the right upper lung pulmonary arteries as well. Hiatal hernia is noted. No focal consolidation is seen. Chronic changes are noted with minimal lower lobe at electasis. No acute bone findings are seen. IMPRESSION: 1. PTE within the right central pulmonary artery with extension to the right upper and lower pulmonary arteries. CRITICAL RESULT: Time of Discovery (PROCESS PROJECT ENGINEER/CDT): 554 Time of Communication (PROCESS PROJECT ENGINEER/CDT): 554 Licensed Practitioner Receiving Report: Garry Read-Back Performed: Yes. Signer Name: aBkari Villagomez MD Signed: 12/20/2020 6:57 PM Workstation Name: [id number] Transcribed By: CW Dictated By: MARISA VILLAGOMEZ MD Electronically Authenticated By: MARISA VILLAGOMEZ MD Signed Date/Time: 12/20/20 7320 - Medical Decision Making Patient is a 65-year-old F [place] female who is presenting with some chest discomfort or shortness of breath. Patient with just some minimal wheeze was given a neb treatment on arrival. States she has some improvement but the shortness of breath returned. O2 sats on room air were in the upper 90s but the patient had persistent tachycardia. Chest x-ray was within normal limits. D- dimer was slightly elevated and a perfusion study was done which was inconclusive. Patient does have a allergy to iodine and shellfish however she has had CTs in the past and we decided to pretreat the patient with 50 mg of Ubaldo adryl IV. After approximately 30 to 40 minutes of wait time patient did receive a CTA which was positive for a large pulmonary embolus in the right central vein. Patient started on heparin. Dr. Rowley with vascular has been consulted and the patient will be admitted to the hospitalist service under Dr. Devlin. Will also place the patient on the Covid PUI list since the patient is at high risk for having the virus since she was not vaccinated. Critical Care Time: Yes (40) Critical care attestation.: If time is entered above; I have spent that time in minutes in the direct care of this critically ill patient, excluding procedure time. ED Disposition Clinical Impression: Pulmonary embolism Qualifiers: Pulmonary embolism type: other Chronicity: acute Acute cor pulmonale presence: without acute cor pulmonale Qualified Code(s): I26.99 - Other pulmonary embolism without acute cor pulmonale Disposition: OP ADMIT IP TO THIS HOSP Is pt being admited?: Yes Does the pt Need Aspirin: No Condition: Serious Instructions: Pulmonary Embolism Time of Disposition: 19:25
[2020-12-20 19:30] LABS: Hematocrit 45.3 % (30.3-42.9); Hemoglobin 15.5 gm/dl (10.1-14.3)
[2020-12-20 19:38] LABS: INR 1.03 (0.87-1.13)
[2020-12-20 19:39] LABS: Partial Thromboplastin Time 24.6 Sec. (24.2-36.6)
[2020-12-20] MEDS ORDERED: ACETAMINOPHEN 325 MG TAB PO PRN (19:50)
[2020-12-20] MEDS ORDERED: ALPRAZolam 0.25 MG TAB PO PRN (19:52)
[2020-12-20] MEDS: HEPARIN/ 0.45% NACL DRIP 25,000 UNIT/500 ML BAG IV SCH (20:13)
[2020-12-20] MEDS: HYDROmorphone 1 MG/1 ML INJ IV PRN (20:38)
[2020-12-20] MEDS: methylPREDNISolone Sod Succinate 40 MG/1 ML INJ IV SCH (20:38)
[2020-12-20 21:08] LABS: Free T4 (Free Thyroxine) 1.03 ng/dL (0.76-1.46)
[2020-12-20] MEDS: FAMOTIDINE 20 MG TAB PO SCH (22:39)
[2020-12-20] MEDS: ASCORBIC ACID 500 MG TAB PO SCH (22:39)
[2020-12-20] MEDS: methIMAzole 5 MG TAB PO SCH (22:39)
[2020-12-20] MEDS: ZINC SULFATE 220 MG CAP PO SCH (22:39)
[2020-12-21 03:22] LABS: Basophils % (Auto) 0.2 % (0.0-1.8); Hematocrit 45.4 % (30.3-42.9); Hemoglobin 15.3 gm/dl (10.1-14.3); Lymphocytes # (Auto) 1.5 K/mm3 (1.2-5.4); Lymphocytes % (Auto) 11.5 % (13.4-35.0); Mean Corpuscular HGB Conc 34 % (30-34); Mean Corpuscular Volume 94 fl (79-97); Monocytes # (Auto) 0.2 K/mm3 (0.0-0.8); Monocytes % (Auto) 1.6 % (0.0-7.3); Platelet Count 209 K/mm3 (140-440); Red Blood Count 4.85 M/mm3 (3.65-5.03); Red Cell Distribution Width 13.8 % (13.2-15.2)
[2020-12-21 03:43] LABS: Alanine Aminotransferase 13 units/L (7-56); Albumin 4.4 g/dL (3.9-5); Blood Urea Nitrogen 11 mg/dL (7-17); Calcium 9.8 mg/dL (8.4-10.2); Hemolysis Index 4
[2020-12-21 03:44] LABS: BUN/Creatinine Ratio 22
[2020-12-21] MEDS: HYDROmorphone 1 MG/1 ML INJ IV PRN (04:30)
[2020-12-21] MEDS: methIMAzole 5 MG TAB PO SCH ×3 (05:44→23:12)
[2020-12-21] MEDS: methylPREDNISolone Sod Succinate 40 MG/1 ML INJ IV SCH ×3 (05:44→20:19)
[2020-12-21] MEDS: ALBUTEROL 2.5 MG/3 ML NEBU IH PRN ×2 (06:40→22:02)
[2020-12-21] MEDS: LISINOPRIL 40 MG TAB PO SCH (09:57)
[2020-12-21] MEDS: CHOLECALCIFEROL (VIT D3) 1000 UNIT (25 mcg) TAB PO SCH (09:57)
[2020-12-21] MEDS: ASCORBIC ACID 500 MG TAB PO SCH ×2 (09:58→23:23)
[2020-12-21] MEDS: FAMOTIDINE 20 MG TAB PO SCH ×2 (09:58→23:12)
[2020-12-21] MEDS: ZINC SULFATE 220 MG CAP PO SCH ×2 (09:58→23:13)
[2020-12-21] MEDS: METOPROLOL SUCCINATE XL 50 MG TAB PO SCH (09:59)
[2020-12-21] MEDS: dilTIAZem CD 120 MG CAP PO SCH (09:59)
--- NOTE | 2020-12-21 10:44 | Progress Note ---
Assessment and Plan Assessment and Plan - Patient Problems (1) Acute hypoxemic respiratory failure Current Visit: Yes Status: Acute Plan to address problem: Supplemental oxygen, pulse oximetry, chest x-ray, CT scan chest, noninvasive positive pressure ventilation as clinically indicated (2) Suspected 2019-nCoV infection Current Visit: Yes Status: Acute Plan to address problem: Coronavirus protocol: Steroid therapy, supportive care, vitamin C therapy, vitamin D therapy, zinc therapy, coronavirus PCR ordered and is pending at time of admission, contact cautions, isolation precautions (3) Obesity hypoventilation syndrome Current Visit: Yes Status: Acute Plan to address problem: Balanced diet, increase physical activity at discharge, outpatient pulmonary follow-up for sleep study. (4) Pulmonary embolism Current Visit: Yes Status: Acute Qualifiers: Pulmonary embolism type: other Chronicity: acute Acute cor pulmonale presence: without acute cor pulmonale Qualified Code(s): I26.99 - Other pulmonary embolism without acute cor pulmonale Plan to address problem: CT scan chest, therapeutic anticoagulation with heparin drip, supportive care. Interventional radiology team consulted. Echocardiogram ordered, no EKG right strain pattern. (5) Diastolic CHF Current Visit: Yes Status: Suspected Qualifiers: Heart failure chronicity: acute Qualified Code(s): I50.31 - Acute diastolic (congestive) heart failure Plan to address problem: Strict I/O, monitor urine output every shift, daily weight, afterload reduction, blood pressure control, echocardiogram ordered and is pending at time of admission (6) Hypertension Current Visit: Yes Status: Acute (7) Diabetes Current Visit: Yes Status: Acute Plan to address problem: Consistent carbohydrate diet, Accu-Chek, hypoglycemia protocol, insulin protocol . (8) GERD (gastroesophageal reflux disease) Current Visit: Yes Status: Acute Qualifiers: Esophagitis presence: without esophagitis Qualified Code(s): K21.9 - Gastro-esophageal reflux disease without esophagitis Plan to address problem: PPI therapy, supportive care (9) Hyperthyroidism Current Visit: Yes Status: Acute Plan to address problem: Continue methimazole therapy, supportive care, telemetry monitoring. (10) DVT prophylaxis Current Visit: Yes Status: Acute Plan to address problem: SCD to bilateral lower extremities while in bed, continue therapeutic anticoagulation (11) Advance care planning Current Visit: Yes Status: Acute Plan to address problem: Disease education conducted, care plan discussed, diagnosis discussed, prognosis discussed, patient is full code, patient knowledges understanding and agreement with care plan, +30 minutes. Subjective Date of service: 12/21/20 Interval history: Patient is a 65-year-old F Citizen Of [place] female with past medical history hypertension and asthma who has had a cough with shortness of breath of throughout the week. Patient does have a nebulizer machine at home but states that the neb treatments are not helping. She is taken multiple neb treatments even today without relief. Patient states the cough is dry she does have some pain with the cough. She denies fevers chills body aches nausea vomiting or diarrhea at this time. Objective - Constitutional Vitals: Vital Signs - 12hr 12/20/20 12/20/20 12/20/20 23:12 23:21 23:56 Temperature Pulse Rate 96 H 95 H Pulse Rate [ Bilateral] Pulse Rate [ None] Respiratory 13 Rate Respiratory Rate [Bilateral ] Blood Pressure O2 Sat by Pulse 97 98 Oximetry 12/21/20 12/21/20 12/21/20 00:00 00:07 00:44 Temperature 98.4 F Pulse Rate 98 H 95 H Pulse Rate [ Bilateral] Pulse Rate [ 96 H None] Respiratory 15 15 Rate Respiratory Rate [Bilateral ] Blood Pressure 138/93 O2 Sat by Pulse 97 98 Oximetry 12/21/20 12/21/20 12/21/20 01:00 02:00 03:00 Temperature Pulse Rate 98 H 95 H 90 Pulse Rate [ Bilateral] Pulse Rate [ None] Respiratory 13 13 12 Rate Respiratory Rate [Bilateral ] Blood Pressure 138/93 134/97 137/91 O2 Sat by Pulse 99 99 99 Oximetry 12/21/20 12/21/20 12/21/20 04:00 04:06 04:41 Temperature 98.6 F Pulse Rate 99 H 97 H Pulse Rate [ 78 Bilateral] Pulse Rate [ None] Respiratory 17 Rate Respiratory 15 Rate [Bilateral ] Blood Pressure 137/91 O2 Sat by Pulse 100 Oximetry 12/21/20 12/21/20 12/21/20 05:00 06:00 08:18 Temperature Pulse Rate 90 88 Pulse Rate [ Bilateral] Pulse Rate [ None] Respiratory 14 12 Rate Respiratory Rate [Bilateral ] Blood Pressure 143/92 165/90 O2 Sat by Pulse 99 97 99 Oximetry 12/21/20 12/21/20 09:57 09:59 Temperature Pulse Rate 95 H 95 H Pulse Rate [ Bilateral] Pulse Rate [ None] Respiratory Rate Respiratory Rate [Bilateral ] Blood Pressure 159/105 159/105 O2 Sat by Pulse Oximetry General appearance: Present: no acute distress, well-nourished - EENT Eyes: PERRL, EOM intact ENT: hearing intact, clear oral mucosa Ears: bilateral: normal - Neck Neck: supple, normal ROM - Respiratory Respiratory effort: normal Respiratory: bilateral: CTA - Breasts Breasts: normal - Cardiovascular Rhythm: regular Heart Sounds: Present: S1 & S2. Absent: gallop, rub Extremities: pulses intact, No edema, normal color, Full ROM - Gastrointestinal General gastrointestinal: Present: soft, non-tender, non-distended, normal bowel sounds - Genitourinary Female genitourinary: normal - Integumentary Integumentary: clear, warm, dry - Musculoskeletal Musculoskeletal: 1, strength equal bilaterally - Neurologic Neurologic: moves all extremities - Psychiatric Psychiatric: memory intact, appropriate mood/affect, intact judgment & insight - Labs CBC & Chem 7: 12/21/20 02:24 12/21/20 02:24 Labs: Abnormal lab results 12/20/20 12/20/20 12/20/20 Range/Units 14:28 14:28 14:28 WBC (4.5-11.0) K/mm3 Hgb 14.9 H (10.1-14.3) gm/dl Hct 44.1 H (30.3-42.9) % Lymph % (Auto) (13.4-35.0) % Seg Neutrophils % 79.8 H (40.0-70.0) % Seg Neutrophils # 8.4 H (1.8-7.7) K/mm3 D-Dimer 663.99 H (0-234) ng/mlDDU Creatinine (0.6-1.2) mg/dL Glucose 153 H (65-100) mg/dL POC Glucose (70-105) mg/dL Lactate Dehydrogenase (91-180) units/L 12/20/20 12/20/20 12/20/20 Range/Units 19:13 19:13 19:17 WBC (4.5-11.0) K/mm3 Hgb 15.5 H (10.1-14.3) gm/dl Hct 45.3 H (30.3-42.9) % Lymph % (Auto) (13.4-35.0) % Seg Neutrophils % (40.0-70.0) % Seg Neutrophils # (1.8-7.7) K/mm3 D-Dimer 771.34 H (0-234) ng/mlDDU Creatinine (0.6-1.2) mg/dL Glucose 224 H (65-100) mg/dL POC Glucose (70-105) mg/dL Lactate Dehydrogenase 235 H (91-180) units/L 12/20/20 12/21/20 12/21/20 Range/Units 23:38 02:24 02:24 WBC 12.8 H (4.5-11.0) K/mm3 Hgb 15.3 H (10.1-14.3) gm/dl Hct 45.4 H (30.3-42.9) % Lymph % (Auto) 11.5 L (13.4-35.0) % Seg Neutrophils % 86.7 H (40.0-70.0) % Seg Neutrophils # 11.1 H (1.8-7.7) K/mm3 D-Dimer (0-234) ng/mlDDU Creatinine 0.5 L (0.6-1.2) mg/dL Glucose 182 H (65-100) mg/dL POC Glucose 196 H (70-105) mg/dL Lactate Dehydrogenase (91-180) units/L
[2020-12-21] MEDS ORDERED: ALBUTEROL 8.5 GM MDI INHALATION IH PRN (14:22)
--- NOTE | 2020-12-21 15:36 | Consultation ---
History of Present Illness - Reason for Consult Consult date: 12/21/20 Shortness of breath - History of Present Illness 65-year-old -[place] female with HTN, DM, Asthma, GERD, OA, Debility, Obesity Hypoventilation Syndrome, Hyperthyroidism, DVT/PE not currently on therapeutic anticoagulation, Vascular Dementia, Cerebral Atherosclerosis presents to ED for evaluation. Patient reports "I do not feel well, and I just cannot breathe". Patient states that she has experienced shortness of breath, generalized weakness, malaise, decreased exercise tolerance, dyspnea on exertion, dry cough, dyspnea at rest over the past 1 week with persistently worsening symptoms over the same timeframe. Patient also reports frequent nebulizer therapy without relief. EMS was notified and upon arrival the patient was found to be in distress and subsequently transported to [facility] for further care and evaluation of the aforementioned symptoms. The patient was seen and evaluated in the emergency department. All lab and imaging studies reviewed. Patient is uncertain of COVID-19 exposure and is unvaccinated. Patient found to have a pulse oximetry of 88% on room air which is consistent with acute hypoxemic respiratory failure. Patient underwent CT scan of the chest which revealed large right pulmonary embolism. Patient admitted to [facility] and initiated on therapeutic anticoagulation as well as coronavirus protocol. Patient denies fever, chills, chest pain, palpitations, skin rash, recent ill contacts. Prior admission on 03/18/2016 reviewed. All medication listed at time of admission has been reconciled. Advanced care planning conducted in ED. Vascular surgery team consulted in ED. Vascular consulted for pulmonary embolism. BNP within normal limits. No right heart strain on CT. There is a nonocclusive thrombus noted in the right distal main pulmonary embolism and some of the segmental branches. Large amount of flow around the thrombus. Patient denies any recent travel history. She has chronic low back pain which results in bilateral lower extremity pain, which has been present for the last 2 years. It has been exacerbated over the last few weeks which could be the etiology for the front pulmonary embolism. She has had a pulmonary embolism in the past, 20 years ago. Past History Past Medical History: arthritis, diabetes, DVT, GERD, hypertension, pulmonary embolism Past Surgical History: , Other (Breast biopsy) Social history: . denies: smoking, alcohol abuse Family history: diabetes, hypertension Medications and Allergies Allergies Allergy/AdvReac Type Severity Reaction Status Date / Time iodine Allergy Shortness Verified 04/01/18 15:58 of Breath shellfish derived Allergy Swelling Verified 04/01/18 15:58 Home Medications Medication Instructions Recorded Confirmed Last Taken Type ALPRAZolam [Xanax TAB] 0.25 mg PO Q8H PRN #30 tablet 03/22/16 Unknown Rx Albuterol Mdi (or & Nicu Only) 2 puff IH QID PRN #90 inhalation 03/22/16 Unknown Rx [ProAir HFA Inhaler] Fluticasone (Nf) [Flovent Hfa(Nf)] 2 puff IH BID #60 puff 03/22/16 Unknown Rx Levalbuterol Tartrate [Xopenex Hfa] 1 puff IH Q8HR #2 hfa.aer.ad 03/22/16 Unknown Rx Metoprolol Xl [Metoprolol 50 mg PO QDAY #30 tablet 03/22/16 Unknown Rx SUCCINATE ER TAB] Prednisone [predniSONE (Jairo) ER 10 mg PO QDAY #60 tablet.dr 03/22/16 Unknown Rx TAB] dilTIAZem CD [Cardizem Cd] 120 mg PO DAILY #30 cap 03/22/16 Unknown Rx lisinopriL [Zestril TAB] 40 mg PO QDAY #30 tablet 03/22/16 Unknown Rx metFORMIN XR [Glucophage XR] 1,000 mg PO QDDIAB #60 tablet 03/22/16 Unknown Rx methIMAzole [Tapazole] 10 mg PO Q8HR #90 tablet 03/22/16 Unknown Rx ALBUTEROL NEB's [Proventil 0.083% 2.5 mg IH TID PRN #270 ml 07/10/17 Unknown Rx NEBS] Cyclobenzaprine HCl [Flexeril 5 MG 5 mg PO Q12H PRN #10 tab 04/01/18 Unknown Rx TAB] traMADoL [Ultram] 50 mg PO Q6HR PRN #10 tablet 04/01/18 Unknown Rx Active Meds: Active Medications Acetaminophen (Acetaminophen 325 Mg Tab) 650 mg PO Q6H PRN PRN Reason: Pain MILD(1-3)/Fever >100.5/[place]ON Albuterol (Albuterol 2.5 Mg/3 Ml Nebu) 2.5 mg IH Q3HRT PRN PRN Reason: Shortness Of Breath Last Admin: 12/21/20 06:40 Dose: 2.5 mg Documented by: Albuterol (Albuterol 8.5 Gm Mdi Inhalation) 2 puff IH QID PRN PRN Reason: Shortness Of Breath Alprazolam (Alprazolam 0.25 Mg Tab) 0.25 mg PO Q8H PRN PRN Reason: Anxiety Last Admin: 12/21/20 11:48 Dose: 0.25 mg Documented by: Ascorbic Acid (Ascorbic Acid 500 Mg Tab) 500 mg PO BID [facility] Last Admin: 12/21/20 09:58 Dose: 500 mg Documented by: Cholecalciferol (Cholecalciferol (Vit D3) 1000 Unit (25 Mcg) Tab) 1,000 unit PO QDAY [facility] Last Admin: 12/21/20 09:57 Dose: 1,000 unit Documented by: Diltiazem HCl (Diltiazem Cd 120 Mg Cap) 120 mg PO DAILY [facility] Last Admin: 12/21/20 09:59 Dose: 120 mg Documented by: Famotidine (Famotidine 20 Mg Tab) 20 mg PO BID [facility] Last Admin: 12/21/20 09:58 Dose: 20 mg Documented by: Heparin Sodium (Porcine) (Heparin 10,000 Units/10 Ml Vial) 4,400 unit 40 unit/kg (4400 unit) IV Q6H PRN PRN Reason: Anti-Xa Assay < 0.1 units/ml Hydromorphone HCl (Hydromorphone 1 Mg/1 Ml Inj) 0.25 mg IV Q12H PRN PRN Reason: Pain, Moderate (4-6) Last Admin: 12/21/20 04:30 Dose: 0.25 mg Documented by: Heparin Sodium/Sodium Chloride (Heparin/ 0.45% Nacl-25,000 Unit/500 Ml) 25,000 unit in 500 mls @ 30 mls/hr IV TITR [facility]; Protocol Last Admin: 12/20/20 20:13 Dose: 1,500 units/hr, 30 mls/hr Documented by: Insulin Human Lispro (Insulin Lispro 100 Unit/Ml) 0 unit SUB-Q ACHS [facility]; Protocol Lisinopril (Lisinopril 40 Mg Tab) 40 mg PO QDAY [facility] Last Admin: 12/21/20 09:57 Dose: 40 mg Documented by: Methimazole (Methimazole 5 Mg Tab) 10 mg PO Q8HR [facility] Last Admin: 12/21/20 13:52 Dose: 10 mg Documented by: Methylprednisolone Sodium Succinate (Methylprednisolone Sod Succinate 40 Mg/1 Ml Inj) 40 mg IV Q8H [facility] Last Admin: 12/21/20 11:48 Dose: 40 mg Documented by: Metoprolol Succinate (Metoprolol Succinate Xl 50 Mg Tab) 50 mg PO QDAY [facility] Last Admin: 12/21/20 09:59 Dose: 50 mg Documented by: Oxycodone/Acetaminophen (Oxycodone /Acetaminophen 5-325mg Tab) 1 tab PO Q12H PRN PRN Reason: Pain, Moderate (4-6) Sodium Chloride (Sodium Chloride 0.9% 10 Ml Flush Syringe) 10 ml IV BID [facility] Last Admin: 12/21/20 10:00 Dose: 10 ml Documented by: Sodium Chloride (Sodium Chloride 0.9% 10 Ml Flush Syringe) 10 ml IV PRN PRN PRN Reason: LINE FLUSH Zinc Sulfate (Zinc Sulfate 220 Mg Cap) 220 mg PO BID [facility] Last Admin: 12/21/20 09:58 Dose: 220 mg Documented by: Review of Systems ROS unobtainable: due to mental status Exam - Constitutional Vitals: Temp Pulse Resp BP Pulse Ox 97.8 F 89 11 L 144/93 97 12/21/20 12:22 12/21/20 13:00 12/21/20 13:00 12/21/20 13:00 12/21/20 13:00 General appearance: Present: mild distress (Mild shortness of breath) - EENT Eyes: Present: EOM intact ENT: hearing intact - Neck Neck: Present: supple - Respiratory Respiratory effort: labored - Extremities Extremities: normal temperature, normal color - Abdominal General gastrointestinal: Present: soft, non-tender - Psychiatric Psychiatric: appropriate mood/affect, cooperative Results - Labs CBC & Chem 7: 12/21/20 02:24 12/21/20 02:24 Labs: Abnormal lab results 12/20/20 12/20/20 12/20/20 Range/Units 19:13 19:13 19:17 WBC (4.5-11.0) K/mm3 Hgb 15.5 H (10.1-14.3) gm/dl Hct 45.3 H (30.3-42.9) % Lymph % (Auto) (13.4-35.0) % Seg Neutrophils % (40.0-70.0) % Seg Neutrophils # (1.8-7.7) K/mm3 D-Dimer 771.34 H (0-234) ng/mlDDU Creatinine (0.6-1.2) mg/dL Glucose 224 H (65-100) mg/dL POC Glucose (70-105) mg/dL Lactate Dehydrogenase 235 H (91-180) units/L 12/20/20 12/21/20 12/21/20 Range/Units 23:38 02:24 02:24 WBC 12.8 H (4.5-11.0) K/mm3 Hgb 15.3 H (10.1-14.3) gm/dl Hct 45.4 H (30.3-42.9) % Lymph % (Auto) 11.5 L (13.4-35.0) % Seg Neutrophils % 86.7 H (40.0-70.0) % Seg Neutrophils # 11.1 H (1.8-7.7) K/mm3 D-Dimer (0-234) ng/mlDDU Creatinine 0.5 L (0.6-1.2) mg/dL Glucose 182 H (65-100) mg/dL POC Glucose 196 H (70-105) mg/dL Lactate Dehydrogenase (91-180) units/L 12/21/20 Range/Units 11:12 WBC (4.5-11.0) K/mm3 Hgb (10.1-14.3) gm/dl Hct (30.3-42.9) % Lymph % (Auto) (13.4-35.0) % Seg Neutrophils % (40.0-70.0) % Seg Neutrophils # (1.8-7.7) K/mm3 D-Dimer (0-234) ng/mlDDU Creatinine (0.6-1.2) mg/dL Glucose (65-100) mg/dL POC Glucose 223 H (70-105) mg/dL Lactate Dehydrogenase (91-180) units/L Assessment and Plan 65-year-old female with multiple medical issues including shortness of breath with history of asthma and pulmonary embolism. She now presents with a right-sided pulmonary embolism and bilateral lower extremity pain, right side worse than left. BNP within normal limits. No right heart strain on CT scan. Nonocclusive right distal main pulmonary embolism with additional segmental involvement. Pulmonary embolism is relatively small in size and there is likely a comorbid condition, such as asthma exacerbation or Covid infection, which is making her symptomatology worse. No need for endovascular therapy. Given that this is her second episode of pulmonary embolism, recommend anticoagulation for life. Recommend Eliquis 10 mg p.o. twice daily for 7 days, then 5 mg p.o. twice daily afterwards. After 3 months, will likely switch patient to 2.5 mg p.o. twice daily. Ordered venous ultrasound of the bilateral lower extremities.
[2020-12-21] MEDS: INSULIN LISPRO 100 UNIT/ML SUB-Q SCH ×2 (16:47→23:15)
[2020-12-21] MEDS: HEPARIN/ 0.45% NACL DRIP 25,000 UNIT/500 ML BAG IV SCH (16:48)
[2020-12-22 04:22] LABS: Hematocrit 44.7 % (30.3-42.9); Hemoglobin 14.9 gm/dl (10.1-14.3)
[2020-12-22] MEDS: methylPREDNISolone Sod Succinate 40 MG/1 ML INJ IV SCH ×3 (05:21→20:38)
[2020-12-22] MEDS: methIMAzole 5 MG TAB PO SCH ×3 (06:11→22:40)
[2020-12-22] MEDS: INSULIN LISPRO 100 UNIT/ML SUB-Q SCH ×4 (08:16→22:38)
--- NOTE | 2020-12-22 09:53 | Progress Note ---
Assessment and Plan Assessment and plan: -- Pulmonary embolism Current Visit: Yes Status: Acute Right-sided PE, on heparin drip, oxygen titrate O2 sats more than 90% Follow lower extremity venous Doppler to evaluate for DVT IR evaluation and recommendations noted and appreciated No vascular surgery required at this point Transition to oral anticoagulants once patient is clinically stable probably tomorrow -- Acute hypoxemic respiratory failure Current Visit: Yes Status: Acute Requiring BiPAP, oxygen titrate O2 sats to more than 90%, BiPAP as needed Home O2 evaluation prior to discharge, incentive spirometry Pulmonary consult --COVID-19 test is negative Current Visit: Yes Status: Acute Coronavirus protocol: Reynoso PCR test is negative --Obesity BMI 33.6 Current Visit: Yes Status: Acute Balanced diet, increase physical activity at discharge, outpatient pulmonary follow-up for sleep study. -- Diastolic CHF Strict I/O, monitor urine output every shift, daily weight, afterload reduction, blood pressure control, echocardiogram ordered and is pending at time of admission --Hypertension Current Visit: Yes Status: Acute Moderate control, continue current antihypertensives -- Diabetes type II Current Visit: Yes Status: Acute Consistent carbohydrate diet, Accu-Chek, hypoglycemia protocol, insulin protocol. --GERD (gastroesophageal reflux disease) Current Visit: Yes Status: Acute PPI therapy, supportive care -- Hyperthyroidism Current Visit: Yes Status: Acute Continue methimazole therapy, supportive care, telemetry monitoring. -- DVT prophylaxis Current Visit: Yes Status: Acute SCD to bilateral lower extremities while in bed, continue therapeutic anticoagulation -- Advance care planning Current Visit: Yes Status: Acute Disease education conducted, care plan discussed, diagnosis discussed, prognosis discussed, patient is full code, patient knowledges understanding and agreement with care plan, +30 minutes. We will closely monitor the patient and adjust management as needed Transition to oral anticoagulants Eliquis from tomorrow morning dose Continue heparin drip for now, patient will follow with b2b sales representative upon d ischarge Plan of care reviewed with the patient and her nurse Consults and recommendations noted and appreciated Possible discharge in 1 to 2 days if stable on oral anticoagulants Eliquis Critical care time 45 minutes History Interval history: I have seen and examined the patient at the bedside in [facility] this morning Patient's chart and medications reviewed. Patient with subacute pulmonary embolism, on heparin drip Patient is alert and awake not in acute distress Saturating well on 2 L of nasal cannula oxygen Mild chest pain denies shortness of breath Vital signs reviewed Hospitalist Physical - Constitutional Vitals: Temp Pulse Resp BP Pulse Ox 98 F 75 12 120/64 99 12/22/20 08:00 12/22/20 09:00 12/22/20 09:00 12/22/20 09:00 12/22/20 09:00 General appearance: Present: mild distress (Mild shortness of breath), well-nourished, obese - EENT Eyes: Present: PERRL, EOM intact - Neck Neck: Present: supple, normal ROM - Respiratory Respiratory effort: normal Respiratory: right: rhonchi (Right more than left), bilateral: diminished, negative: rales, wheezing - Cardiovascular Rhythm: regular Heart Sounds: Present: S1 & S2 - Extremities Extremities: no ischemia, No edema - Abdominal General gastrointestinal: soft, non-tender, non-distended, normal bowel sounds - Integumentary Integumentary: Present: clear, warm - Psychiatric Psychiatric: appropriate mood/affect, cooperative - Neurologic Neurologic: CNII-XII intact, moves all extremities Results - Labs CBC & Chem 7: 12/22/20 03:38 12/21/20 02:24 Labs: Laboratory Last Values WBC 12.8 K/mm3 (4.5-11.0) H 12/21/20 02:24 RBC 4.85 M/mm3 (3.65-5.03) 12/21/20 02:24 Hgb 14.9 gm/dl (10.1-14.3) H 12/22/20 03:38 Hct 44.7 % (30.3-42.9) H 12/22/20 03:38 MCV 94 fl (79-97) 12/21/20 02:24 MCH 32 pg (28-32) 12/21/20 02:24 MCHC 34 % (30-34) 12/21/20 02:24 RDW 13.8 % (13.2-15.2) 12/21/20 02:24 Plt Count 219 K/mm3 (140-440) 12/22/20 03:38 Lymph % (Auto) 11.5 % (13.4-35.0) L 12/21/20 02:24 [place] % (Auto) 1.6 % (0.0-7.3) 12/21/20 02:24 Eos % (Auto) 0.0 % (0.0-4.3) 12/21/20 02:24 Baso % (Auto) 0.2 % (0.0-1.8) 12/21/20 02:24 Lymph # (Auto) 1.5 K/mm3 (1.2-5.4) 12/21/20 02:24 [place] # (Auto) 0.2 K/mm3 (0.0-0.8) 12/21/20 02:24 Eos # (Auto) 0.0 K/mm3 (0.0-0.4) 12/21/20 02:24 Baso # (Auto) 0.0 K/mm3 (0.0-0.1) 12/21/20 02:24 Seg Neutrophils % 86.7 % (40.0-70.0) H 12/21/20 02:24 Seg Neutrophils # 11.1 K/mm3 (1.8-7.7) H 12/21/20 02:24 PT 14.1 Sec. (12.2-14.9) 12/20/20 19:13 INR 1.03 (0.87-1.13) 12/20/20 19:13 APTT 24.6 Sec. (24.2-36.6) 12/20/20 19:13 D-Dimer 771.34 ng/mlDDU (0-234) H 12/20/20 19:13 Heparin Anti-Xa Level 1.55 U.I./ml (0.3-0.7) H 12/22/20 03:38 Sodium 140 mmol/L (137-145) 12/21/20 02:24 Potassium 4.5 mmol/L (3.6-5.0) 12/21/20 02:24 Chloride 101.9 mmol/L (98-107) 12/21/20 02:24 Carbon Dioxide 26 mmol/L (22-30) 12/21/20 02:24 Anion Gap 17 mmol/L 12/21/20 02:24 BUN 11 mg/dL (7-17) 12/21/20 02:24 Creatinine 0.5 mg/dL (0.6-1.2) L 12/21/20 02:24 Estimated GFR > 60 ml/min 12/21/20 02:24 BUN/Creatinine Ratio 22 % 12/21/20 02:24 Glucose 182 mg/dL (65-100) H 12/21/20 02:24 POC Glucose 169 mg/dL (70-105) H 12/22/20 08:08 Calcium 9.8 mg/dL (8.4-10.2) 12/21/20 02:24 Magnesium 1.90 mg/dL (1.7-2.3) 12/20/20 19:13 Ferritin 169.2 ng/mL (10.0-200.0) 12/20/20 19:13 Total Bilirubin 0.40 mg/dL (0.1-1.2) 12/21/20 02:24 AST 13 units/L (5-40) 12/21/20 02:24 ALT 13 units/L (7-56) 12/21/20 02:24 Alkaline Phosphatase 86 units/L (35-129) 12/21/20 02:24 Lactate Dehydrogenase 235 units/L (91-180) H 12/20/20 19:13 C-Reactive Protein 0.00 mg/dL (0.00-1.30) 12/20/20 19:13 NT-Pro-B Natriuret Pep 114.8 pg/mL (0-900) 12/20/20 19:13 Total Protein 7.3 g/dL (6.3-8.2) 12/21/20 02:24 Albumin 4.4 g/dL (3.9-5) 12/21/20 02:24 Albumin/Globulin Ratio 1.5 % 12/21/20 02:24 Procalcitonin < 0.05 ng/mL (<0.15) 12/20/20 19:13 TSH 0.764 mlU/mL (0.270-4.200) 12/20/20 19:13 Free T4 1.03 ng/dL (0.76-1.46) 12/20/20 19:13 Coronavirus (PCR) Negative (Negative) 12/20/20 Unknown Navarro/IV: Voiding Method Bedside Commode Active Medications - Current Medications Current Medications: Generic Name Dose Route Start Last Admin Trade Name Freq PRN Reason Stop Dose Admin Acetaminophen 650 mg 12/20/20 19:50 Acetaminophen 325 Mg Tab PO Q6H PRN Pain MILD(1-3)/Fever >100.5/[place]ON Albuterol 2.5 mg 12/20/20 19:50 12/21/20 22:02 Albuterol 2.5 Mg/3 Ml Nebu IH 2.5 mg Q3HRT PRN Administration Shortness Of Breath Alprazolam 0.25 mg 12/20/20 19:52 12/21/20 11:48 Alprazolam 0.25 Mg Tab PO 0.25 mg Q8H PRN Administration Anxiety Ascorbic Acid 500 mg 12/20/20 22:00 12/21/20 23:23 Ascorbic Acid 500 Mg Tab PO 500 mg BID ALEC Administration Cholecalciferol 1,000 unit 12/21/20 10:00 12/21/20 09:57 Cholecalciferol (Vit D3) 1000 Unit (25 Mcg) Tab PO 1,000 unit QDAY ALEC Administration Diltiazem HCl 120 mg 12/21/20 10:00 12/21/20 09:59 Diltiazem Cd 120 Mg Cap PO 120 mg DAILY ALEC Administration Famotidine 20 mg 12/20/20 22:00 12/21/20 23:12 Famotidine 20 Mg Tab PO 20 mg BID ALEC Administration Heparin Sodium (Porcine) 4,400 unit 12/20/20 19:10 Heparin 10,000 Units/10 Ml Vial 40 unit/kg (4400 unit) IV Q6H PRN Anti-Xa Assay < 0.1 units/ml Hydromorphone HCl 0.25 mg 12/20/20 19:50 12/21/20 04:30 Hydromorphone 1 Mg/1 Ml Inj IV 0.25 mg Q12H PRN Administration Pain, Moderate (4-6) Heparin Sodium/Sodium Chloride 25,000 unit in 500 mls @ 30 mls/hr 12/20/20 20:00 12/22/20 06:15 Heparin/ 0.45% Nacl-25,000 Unit/500 Ml IV 0 units/hr TITR ALEC 0 mls/hr Titration Protocol 1,500 UNITS/HR Insulin Human Lispro 0 unit 12/21/20 16:30 12/22/20 08:16 Insulin Lispro 100 Unit/Ml SUB-Q 3 unit ACHS ALEC Administration Protocol Lisinopril 40 mg 12/21/20 10:00 12/21/20 09:57 Lisinopril 40 Mg Tab PO 40 mg QDAY ALEC Administration Methimazole 10 mg 12/20/20 22:00 12/22/20 06:11 Methimazole 5 Mg Tab PO 10 mg Q8HR ALEC Administration Methylprednisolone Sodium Succinate 40 mg 12/20/20 20:30 12/22/20 05:21 Methylprednisolone Sod Succinate 40 Mg/1 Ml Inj IV 40 mg Q8H ALEC Administration Metoprolol Succinate 50 mg 12/21/20 10:00 12/21/20 09:59 Metoprolol Succinate Xl 50 Mg Tab PO 50 mg QDAY ALEC Administration Oxycodone/Acetaminophen 1 tab 12/20/20 19:50 Oxycodone /Acetaminophen 5-325mg Tab PO Q12H PRN Pain, Moderate (4-6) Sodium Chloride 10 ml 12/20/20 22:00 12/21/20 23:12 Sodium Chloride 0.9% 10 Ml Flush Syringe IV 10 ml BID ALEC Administration Sodium Chloride 10 ml 12/20/20 19:50 Sodium Chloride 0.9% 10 Ml Flush Syringe IV PRN PRN LINE FLUSH Zinc Sulfate 220 mg 12/20/20 22:00 12/21/20 23:13 Zinc Sulfate 220 Mg Cap PO 220 mg BID ALEC Administration
[2020-12-22] MEDS: FAMOTIDINE 20 MG TAB PO SCH ×2 (10:24→22:39)
[2020-12-22] MEDS: oxyCODONE /ACETAMINOPHEN 5-325MG TAB PO PRN (10:24)
[2020-12-22] MEDS: CHOLECALCIFEROL (VIT D3) 1000 UNIT (25 mcg) TAB PO SCH (10:25)
[2020-12-22] MEDS: ZINC SULFATE 220 MG CAP PO SCH ×2 (10:26→22:41)
[2020-12-22] MEDS: dilTIAZem CD 120 MG CAP PO SCH (10:26)
[2020-12-22] MEDS: METOPROLOL SUCCINATE XL 50 MG TAB PO SCH (10:26)
[2020-12-22] MEDS: LISINOPRIL 40 MG TAB PO SCH (10:26)
[2020-12-22] MEDS: ASCORBIC ACID 500 MG TAB PO SCH ×2 (10:26→22:40)
--- NOTE | 2020-12-22 13:08 | Vascular Lab Report ---
DUPLEX DOPPLER LOWER EXTREMITY VEINS, BILATERAL INDICATION: Pain and swelling, pulmonary emboli. TECHNIQUE: Duplex doppler imaging was performed through the veins of both lower extremities using venous yasmani melisa and other maneuvers. COMPARISON: No relevant prior imaging study available. FINDINGS: Right Common femoral vein: Negative. Right Superficial femoral vein: Negative. Right Popliteal vein: Negative. Right Calf veins: Negative. Left Common femoral vein: Negative. Left Superficial femoral vein: Negative. Left Popliteal vein: Negative. Left Calf veins: Negative. Additional findings: None.. IMPRESSION: No sonographic evidence of acute or chronic DVT or SVT within the bilateral lower extremities. Signer Name: Danial Angela MD Signed: 12/22/2020 1:03 PM Workstation Name: [id number]
[2020-12-22] MEDS: HEPARIN/ 0.45% NACL DRIP 25,000 UNIT/500 ML BAG IV SCH (14:33)
[2020-12-22] MEDS: ALBUTEROL 2.5 MG/3 ML NEBU IH PRN (19:02)
[2020-12-23] MEDS: methylPREDNISolone Sod Succinate 40 MG/1 ML INJ IV SCH ×3 (04:42→21:13)
[2020-12-23] MEDS: methIMAzole 5 MG TAB PO SCH ×3 (05:52→21:14)
[2020-12-23] MEDS: INSULIN LISPRO 100 UNIT/ML SUB-Q SCH ×4 (09:08→21:48)
[2020-12-23] MEDS: dilTIAZem CD 120 MG CAP PO SCH (09:09)
[2020-12-23] MEDS: LISINOPRIL 40 MG TAB PO SCH (09:09)
[2020-12-23] MEDS: ASCORBIC ACID 500 MG TAB PO SCH ×2 (09:10→21:14)
[2020-12-23] MEDS: FAMOTIDINE 20 MG TAB PO SCH ×2 (09:10→21:14)
[2020-12-23] MEDS: ZINC SULFATE 220 MG CAP PO SCH ×2 (09:10→21:14)
[2020-12-23] MEDS: CHOLECALCIFEROL (VIT D3) 1000 UNIT (25 mcg) TAB PO SCH (09:10)
[2020-12-23] MEDS: METOPROLOL SUCCINATE XL 50 MG TAB PO SCH (09:10)
[2020-12-23] MEDS: oxyCODONE /ACETAMINOPHEN 5-325MG TAB PO PRN (09:13)
--- NOTE | 2020-12-23 09:42 | Progress Note ---
Assessment and Plan Assessment and plan: -- Pulmonary embolism Current Visit: Yes Status: Acute Right-sided PE, DC heparin drip, transition to Eliquis Lower extremity venous Doppler negative for DVT IR evaluated No vascular surgery required at this point Patient is saturating well on room air No indication for home oxygen -- Acute hypoxemic respiratory failure Current Visit: Yes Status: Acute Saturating well on room air --COVID-19 test is negative Current Visit: Yes Status: Acute Coronavirus protocol: Reynoso PCR test is negative --Obesity BMI 33.6 Current Visit: Yes Status: Acute Balanced diet, increase physical activity at discharge, outpatient pulmonary follow-up for sleep study. -- Diastolic CHF Strict I/O, monitor urine output every shift, daily weight, afterload reduction, blood pressure control, echocardiogram ordered and is pending at time of admission --Hypertension Current Visit: Yes Status: Acute Moderate control, continue current antihypertensives -- Diabetes type II Current Visit: Yes Status: Acute Consistent carbohydrate diet, Accu-Chek, hypoglycemia protocol, insulin protocol. --GERD (gastroesophageal reflux disease) Current Visit: Yes Status: Acute PPI therapy, supportive care -- Hyperthyroidism Current Visit: Yes Status: Acute Continue methimazole therapy, supportive care, telemetry monitoring. -- DVT prophylaxis Current Visit: Yes Status: Acute SCD to bilateral lower extremities while in bed, continue therapeutic anticoagulation -- Advance care planning Current Visit: Yes Status: Acute Disease education conducted, care plan discussed, diagnosis discussed, prognosis discussed, patient is full code, patient knowledges understanding and agreement with care plan, +30 minutes. We will closely monitor the patient and adjust management as needed Transition to oral anticoagulants Eliquis from tomorrow morning dose Continue heparin drip for now, patient will follow with oracle software engineer upon discharge Plan of care reviewed with the patient and her nurse Consults and recommendations noted and appreciated Patient stable to be transferred out of [facility] to medical floor Possible discharge tomorrow if stable History Interval history: Seen and examined the patient in [facility] this morning Patient's chart and medications reviewed Patient admitted with bilateral PE on heparin Heparin discontinued today and started on Eliquis per protocol Patient has no new complaints Vital signs noted Hospitalist Physical - Constitutional Vitals: Temp Pulse Resp BP Pulse Ox 97.4 F L 87 16 154/80 97 12/23/20 03:41 12/23/20 09:09 12/23/20 08:55 12/23/20 09:09 12/23/20 09:08 General appearance: Present: no acute distress, well-nourished, obese - EENT Eyes: Present: PERRL, EOM intact - Neck Neck: Present: supple, normal ROM - Respiratory Respiratory effort: normal Respiratory: bilateral: diminished, negative: rales, rhonchi, wheezing - Cardiovascular Rhythm: regular Heart Sounds: Present: S1 & S2 - Extremities Extremities: no ischemia, No edema - Abdominal General gastrointestinal: soft, non-tender, non-distended, normal bowel sounds - Integumentary Integumentary: Present: clear, warm - Psychiatric Psychiatric: appropriate mood/affect, agitated - Neurologic Neurologic: CNII-XII intact, moves all extremities Results - Labs CBC & Chem 7: 12/23/20 10:32 12/23/20 10:32 Labs: Laboratory Last Values WBC 12.8 K/mm3 (4.5-11.0) H 12/21/20 02:24 RBC 4.85 M/mm3 (3.65-5.03) 12/21/20 02:24 Hgb 14.9 gm/dl (10.1-14.3) H 12/22/20 03:38 Hct 44.7 % (30.3-42.9) H 12/22/20 03:38 MCV 94 fl (79-97) 12/21/20 02:24 MCH 32 pg (28-32) 12/21/20 02:24 MCHC 34 % (30-34) 12/21/20 02:24 RDW 13.8 % (13.2-15.2) 12/21/20 02:24 Plt Count 219 K/mm3 (140-440) 12/22/20 03:38 Lymph % (Auto) 11.5 % (13.4-35.0) L 12/21/20 02:24 [place] % (Auto) 1.6 % (0.0-7.3) 12/21/20 02:24 Eos % (Auto) 0.0 % (0.0-4.3) 12/21/20 02:24 Baso % (Auto) 0.2 % (0.0-1.8) 12/21/20 02:24 Lymph # (Auto) 1.5 K/mm3 (1.2-5.4) 12/21/20 02:24 [place] # (Auto) 0.2 K/mm3 (0.0-0.8) 12/21/20 02:24 Eos # (Auto) 0.0 K/mm3 (0.0-0.4) 12/21/20 02:24 Baso # (Auto) 0.0 K/mm3 (0.0-0.1) 12/21/20 02:24 Seg Neutrophils % 86.7 % (40.0-70.0) H 12/21/20 02:24 Seg Neutrophils # 11.1 K/mm3 (1.8-7.7) H 12/21/20 02:24 PT 14.1 Sec. (12.2-14.9) 12/20/20 19:13 INR 1.03 (0.87-1.13) 12/20/20 19:13 APTT 24.6 Sec. (24.2-36.6) 12/20/20 19:13 D-Dimer 771.34 ng/mlDDU (0-234) H 12/20/20 19:13 Heparin Anti-Xa Level 0.64 U.I./ml (0.3-0.7) 12/23/20 02:29 Sodium 140 mmol/L (137-145) 12/21/20 02:24 Potassium 4.5 mmol/L (3.6-5.0) 12/21/20 02:24 Chloride 101.9 mmol/L (98-107) 12/21/20 02:24 Carbon Dioxide 26 mmol/L (22-30) 12/21/20 02:24 Anion Gap 17 mmol/L 12/21/20 02:24 BUN 11 mg/dL (7-17) 12/21/20 02:24 Creatinine 0.5 mg/dL (0.6-1.2) L 12/21/20 02:24 Estimated GFR > 60 ml/min 12/21/20 02:24 BUN/Creatinine Ratio 22 % 12/21/20 02:24 Glucose 182 mg/dL (65-100) H 12/21/20 02:24 POC Glucose 185 mg/dL (70-105) H 12/23/20 07:27 Calcium 9.8 mg/dL (8.4-10.2) 12/21/20 02:24 Magnesium 1.90 mg/dL (1.7-2.3) 12/20/20 19:13 Ferritin 169.2 ng/mL (10.0-200.0) 12/20/20 19:13 Total Bilirubin 0.40 mg/dL (0.1-1.2) 12/21/20 02:24 AST 13 units/L (5-40) 12/21/20 02:24 ALT 13 units/L (7-56) 12/21/20 02:24 Alkaline Phosphatase 86 units/L (35-129) 12/21/20 02:24 Lactate Dehydrogenase 235 units/L (91-180) H 12/20/20 19:13 C-Reactive Protein 0.00 mg/dL (0.00-1.30) 12/20/20 19:13 NT-Pro-B Natriuret Pep 114.8 pg/mL (0-900) 12/20/20 19:13 Total Protein 7.3 g/dL (6.3-8.2) 12/21/20 02:24 Albumin 4.4 g/dL (3.9-5) 12/21/20 02:24 Albumin/Globulin Ratio 1.5 % 12/21/20 02:24 Procalcitonin < 0.05 ng/mL (<0.15) 12/20/20 19:13 TSH 0.764 mlU/mL (0.270-4.200) 12/20/20 19:13 Free T4 1.03 ng/dL (0.76-1.46) 12/20/20 19:13 Coronavirus (PCR) Negative (Negative) 12/20/20 Unknown Navarro/IV: Voiding Method Bedside Commode Active Medications - Current Medications Current Medications: Generic Name Dose Route Start Last Admin Trade Name Freq PRN Reason Stop Dose Admin Acetaminophen 650 mg 12/20/20 19:50 Acetaminophen 325 Mg Tab PO Q6H PRN Pain MILD(1-3)/Fever >100.5/R[place] Albuterol 2.5 mg 12/20/20 19:50 12/22/20 19:02 Albuterol 2.5 Mg/3 Ml Nebu IH 2.5 mg Q3HRT PRN Administration Shortness Of Breath Alprazolam 0.25 mg 12/20/20 19:52 12/21/20 11:48 Alprazolam 0.25 Mg Tab PO 0.25 mg Q8H PRN Administration Anxiety Apixaban 10 mg 12/23/20 10:00 Apixaban 5 Mg Tab PO 12/29/20 22:01 Q12HR [facility] Protocol Ascorbic Acid 500 mg 12/20/20 22:00 12/23/20 09:10 Ascorbic Acid 500 Mg Tab PO 500 mg BID ALEC Administration Cholecalciferol 1,000 unit 12/21/20 10:00 12/23/20 09:10 Cholecalciferol (Vit D3) 1000 Unit (25 Mcg) Tab PO 1,000 unit QDAY ALEC Administration Diltiazem HCl 120 mg 12/21/20 10:00 12/23/20 09:09 Diltiazem Cd 120 Mg Cap PO 120 mg DAILY ALEC Administration Famotidine 20 mg 12/20/20 22:00 12/23/20 09:10 Famotidine 20 Mg Tab PO 20 mg BID ALEC Administration Hydromorphone HCl 0.25 mg 12/20/20 19:50 12/21/20 04:30 Hydromorphone 1 Mg/1 Ml Inj IV 0.25 mg Q12H PRN Administration Pain, Moderate (4-6) Insulin Human Lispro 0 unit 12/21/20 16:30 12/23/20 09:08 Insulin Lispro 100 Unit/Ml SUB-Q 3 unit ACHS [facility] Administration Protocol Lisinopril 40 mg 12/21/20 10:00 12/23/20 09:09 Lisinopril 40 Mg Tab PO 40 mg QDAY ALEC Administration Methimazole 10 mg 12/20/20 22:00 12/23/20 05:52 Methimazole 5 Mg Tab PO 10 mg Q8HR ALEC Administration Methylprednisolone Sodium Succinate 40 mg 12/20/20 20:30 12/23/20 04:42 Methylprednisolone Sod Succinate 40 Mg/1 Ml Inj IV 40 mg Q8H ALEC Administration Metoprolol Succinate 50 mg 12/21/20 10:00 12/23/20 09:10 Metoprolol Succinate Xl 50 Mg Tab PO 50 mg QDAY ALEC Administration Oxycodone/Acetaminophen 1 tab 12/20/20 19:50 12/23/20 09:13 Oxycodone /Acetaminophen 5-325mg Tab PO 1 tab Q12H PRN Administration Pain, Moderate (4-6) Sodium Chloride 10 ml 12/20/20 22:00 12/23/20 09:11 Sodium Chloride 0.9% 10 Ml Flush Syringe IV 10 ml BID ALEC Administration Sodium Chloride 10 ml 12/20/20 19:50 Sodium Chloride 0.9% 10 Ml Flush Syringe IV PRN PRN LINE FLUSH Zinc Sulfate 220 mg 12/20/20 22:00 12/23/20 09:10 Zinc Sulfate 220 Mg Cap PO 220 mg BID ALEC Administration
[2020-12-23 11:02] LABS: Hematocrit 45.2 % (30.3-42.9); Hemoglobin 14.8 gm/dl (10.1-14.3); Mean Corpuscular HGB Conc 33 % (30-34); Mean Corpuscular Volume 94 fl (79-97); Platelet Count 233 K/mm3 (140-440); Red Cell Distribution Width 13.9 % (13.2-15.2)
[2020-12-23 11:15] LABS: INR 1.17 (0.87-1.13)
[2020-12-23 11:19] LABS: Partial Thromboplastin Time 73.2 Sec. (24.2-36.6)
[2020-12-23] MEDS: APIXABAN 5 MG TAB PO SCH ×2 (13:59→21:14)
[2020-12-24 03:30] LABS: Hematocrit 42.8 % (30.3-42.9); Hemoglobin 14.3 gm/dl (10.1-14.3)
[2020-12-24] MEDS: methylPREDNISolone Sod Succinate 40 MG/1 ML INJ IV SCH ×2 (04:31→13:46)
[2020-12-24] MEDS: methIMAzole 5 MG TAB PO SCH ×2 (05:44→13:36)
[2020-12-24] MEDS: ALBUTEROL 2.5 MG/3 ML NEBU IH PRN (08:46)
--- NOTE | 2020-12-24 09:12 | Discharge Summary ---
Providers - Providers Date of Admission: 12/20/20 19:50 Date of discharge: 12/24/20 Attending physician: RUBI DIAZ Primary care physician: SENIOR INVESTIGATOR Hospitalization Reason for admission: Acute shortness of breath/acute right-sided PE Condition: Fair Pertinent studies: Chest x-ray; no acute abnormalities noted VQ scan; cannot exclude pulmonary thromboembolism, indeterminate, intermediate probability, advised CTA chest to confirm CTA chest; pulmonary thromboembolism within the right central pulmonary artery with extension to the right upper and lower pulmonary arteries Lower extremity venous Doppler; no sonographic evidence of acute or chronic DVT or SVT noted Echocardiogram: left ventricular systolic function normal EF 50 to 55% mild concentric left ventricular hypertrophy, right ventricle normal size, systolic function normal limits. Hospital course: 65-year-old female patient with significant past medical history of hypertension diabetes mellitus bronchial asthma GERD osteoarthritis General debility obesity hypothyroidism history of DVT and PE currently not on anticoagulation Was admitted through emergency room with worsening shortness of breath generalized weakness, exertional dyspnea and sometimes dyspnea of 1 week duration prior to admission. In the emergency room chest x-ray was within normal limits however VQ scan was intermediate probability for PE subsequently patient had CTA chest done which was positive for right-sided PE, patient was started on therapeutic anticoagulation with heparin drip evaluated by vascular /interventional, no vascular intervention needed at this point, lower extremity venous Doppler negative for DVT, Patient was managed with supplemental oxygen, and supportive care, heparin drip transition to oral anticoagulants Eliquis Patient has past medical history of recurrent DVT and PE, hence recommended lifelong anticoagulation and follow-up with shuttle truck driver upon discharge. Echocardiogram; normal left ventricular ejection fraction 55 to 60%, no evidence of diastolic CHF[ruled out] Patient was checked for home oxygen by evaluating resting room air and ambulatory room air O2 sats which were more than 95 to 96%, no criteria for home oxygen Today patient is comfortable no new complaints vital signs stable, physical examination prior to discharge is unremarkable Patient strongly advised to comply with medications, diet and follow-up visits, verbalized understanding. Discharge diagnosis: --Right pulmonary embolism Current Visit: Yes Status: Acute -- Acute hypoxemic respiratory failure Current Visit: Yes Status: Acute/resolved --COVID-19 test is negative Current Visit: Yes Status: Acute --Obesity BMI 33.6 Current Visit: Yes Status: Chronic Advised weight reduction -- Diastolic CHF ruled out[normal EF 50 to 55%] Current Visit: Yes Status: Acute --Hypertension Current Visit: Yes Status: Acute Moderate control, continue current antihypertensives -- Diabetes type II Current Visit: Yes Status: Acute Consistent carbohydrate diet, Accu-Chek, hypoglycemia protocol, insulin protocol. --GERD (gastroesophageal reflux disease) Current Visit: Yes Status: Acute PPI therapy, supportive care -- Hyperthyroidism Current Visit: Yes Status: Acute Continue methimazole therapy, supportive care, telemetry monitoring. Stable at discharge Disposition: [id number] HOME [facility] Final Discharge Diagnosis (Prints w/discharge instructions): Right pulmonary embolism. Acute hypoxemic respiratory failure/improved. COVID-19 test negative. Diastolic CHF ruled out. Hypertension. Type 2 diabetes mellitus. GERD. Hypothyroidism. Obesity BMI 33.6 Time spent for discharge: 35 min Core Measure Documentation - Palliative Care Palliative Care/ Comfort Measures: Not Applicable - Core Measures Any of the following diagnoses?: DVT/PE - VTE Discharge Requirements Deep Vein Thrombosis/Pulmonary Embolism Present on Admission: Yes Has pt received <5 days of overlap therapy or INR<2.0: No (Patient is on Eliquis) Anticoagulant overlap therapy prescribed at discharge: No Contraindication No Overlap Therapy order at DC: Not Indicated (Patient is on Eliquis) Exam - Constitutional Vitals: Temp Pulse Resp BP Pulse Ox 98.9 F 74 17 134/65 97 12/23/20 16:00 12/24/20 04:00 12/23/20 22:00 12/23/20 18:00 12/23/20 20:00 General appearance: Present: no acute distress, well-nourished - EENT Eyes: Present: PERRL, EOM intact - Neck Neck: Present: supple, normal ROM - Respiratory Respiratory effort: normal Respiratory: bilateral: diminished, negative: rales, rhonchi, wheezing - Cardiovascular Rhythm: regular Heart Sounds: Present: S1 & S2 - Extremities Extremities: no ischemia, No edema - Abdominal General gastrointestinal: Present: soft, non-tender, non-distended, normal bowel sounds - Integumentary Integumentary: Present: clear, warm - Musculoskeletal Musculoskeletal: strength equal bilaterally, generalized weakness - Psychiatric Psychiatric: appropriate mood/affect, cooperative - Neurologic Neurologic: CNII-XII intact, moves all extremities Plan Activity: no restrictions Diet: diabetic Additional Instructions: Strongly advised to comply with medications diet and follow-up visits. If you have worsening symptoms contact MD or go to the nearest emergency room. Advised to follow primary care physician per schedule. Advised to see outpatient private shuttle truck driver Dr. Chavez in 2 weeks. If you notice any bleeding hold Eliquis[the blood thinner] and contact MD or go to the emergency room as needed Follow up with: PRIMARY CARE, [Primary Care Provider] - 7 Days JANNA HA MD [Staff Physician] - 14 Days Prescriptions: Apixaban [Eliquis] 1 tab PO Q12HR #60 tablet Apixaban [Eliquis] 2 tab PO Q12H #22 tablet Famotidine [Pepcid] 20 mg PO BID #60 tablet ALPRAZolam [Xanax TAB] 0.25 mg PO BID PRN #10 tab PRN Reason: Anxiety
[2020-12-24] MEDS: METOPROLOL SUCCINATE XL 50 MG TAB PO SCH (09:13)
[2020-12-24] MEDS: ZINC SULFATE 220 MG CAP PO SCH (09:14)
[2020-12-24] MEDS: LISINOPRIL 40 MG TAB PO SCH (09:14)
[2020-12-24] MEDS: APIXABAN 5 MG TAB PO SCH (09:14)
[2020-12-24] MEDS: ASCORBIC ACID 500 MG TAB PO SCH (09:15)
[2020-12-24] MEDS: FAMOTIDINE 20 MG TAB PO SCH (09:15)
[2020-12-24] MEDS: CHOLECALCIFEROL (VIT D3) 1000 UNIT (25 mcg) TAB PO SCH (09:16)
[2020-12-24] MEDS: INSULIN LISPRO 100 UNIT/ML SUB-Q SCH ×2 (09:17→13:37)
[2020-12-24 13:36] VITALS: BP 153/79
[2020-12-24] MEDS: dilTIAZem CD 120 MG CAP PO SCH (13:36)
[2020-12-24] MEDS ORDERED: ALPRAZolam 0.25 MG TAB PO NR (14:20)
[2020-12-30] MEDS ORDERED: APIXABAN 5 MG TAB PO SCH (10:00)
== END 2020-12-24 17:25 | disposition home health service (06) | DRG 175 ==
LOC: ED 12:55 → IMCU 19:50 → 3A 12-23 19:43
PROVIDERS: ADMIT Internal Medicine; ATTEND Internal Medicine
DX: I26.99 Other pulmonary embolism without acute cor pulmonale (principal); J96.01 Acute respiratory failure with hypoxia; I50.31 Acute diastolic (congestive) heart failure; E66.2 Morbid (severe) obesity with alveolar hypoventilation; I11.0 Hypertensive heart disease with heart failure; Z20.822 Contact with and (suspected) exposure to COVID-19; Z71.3 Dietary counseling and surveillance; K21.9 Gastro-esophageal reflux disease without esophagitis; E05.90 Thyrotoxicosis, unspecified without thyrotoxic crisis or storm; E11.9 Type 2 diabetes mellitus without complications; Z86.718 Personal history of other venous thrombosis and embolism; Z86.711 Personal history of pulmonary embolism; M19.90 Unspecified osteoarthritis, unspecified site; J45.909 Unspecified asthma, uncomplicated; Z91.041 Radiographic dye allergy status; Z91.013 Allergy to seafood; Z79.84 Long term (current) use of oral hypoglycemic drugs; Z79.899 Other long term (current) drug therapy; F03.90 Unspecified dementia, unspecified severity, without behavioral disturbance, psychotic disturbance, mood disturbance, and anxiety; Z68.33 Body mass index [BMI] 33.0-33.9, adult
CPT/HCPCS: 36415; 71045; 71275; 78580; 80048; 80053; 82565; 82728; 82947; 82962; 83615; 83735; 83880; 84145; 84439; 84443; 85014; 85018; 85025; 85027; 85049; 85379; 85520; 85610; 85730; 86140; 93306; 93970; 94640; 94644; 96374; G0378; A9540; J1100; J1170; J1200; J1644; J1815; J2920; Q9967; U0003